=== PATIENT | female | born 1985 | race Caucasian/White ===

== ENCOUNTER → 2018-10-19 11:27 | Outpatient (CLI) | payer OTHER, SELFPAY ==
[2018-10-19 13:45] LABS: Add Manual Diff / Slide Review NO; Basophils Absolute Auto 0 /uL (0-100); Basophils Percent Auto 0.2 % (0-2); Eosinophils Absolute Auto 100 /uL (0-450); Eosinophils Percent Auto 1.2 % (2-4); Hematocrit 36.2 % (36-46); Hemoglobin 12.3 g/dL (12.0-16.0); Lymphocytes Absolute Auto 2000 /uL (1100-4500); Lymphocytes Percent Auto 24.9 % (25-40); Mean Corpuscular HGB Conc 33.9 % (30-36); Mean Corpuscular Hemoglobin 28.4 PG (26-34); Mean Corpuscular Volume 83.7 fL (80-100); Monocytes Absolute Auto 700 /uL (0-900); Monocytes Percent Auto 8.3 % (3-14); Neutrophils Absolute Auto 5400 /uL (1500-7000); Neutrophils Percent Auto 65.4 % (50-75); Platelet Count 248 X10^3/uL (150-400); Red Blood Cell Count 4.32 X10^6/uL (4.0-5.2); Red Cell Distribution Width 14.8 % (11.6-14.8); White Blood Cell Count 8.2 X10^3/uL (4.5-11.0)
[2018-10-19 14:15] LABS: Appearance Urine UA CLEAR; Bilirubin Urine UA NEGATIVE (NEGATIVE); Color Urine UA YELLOW; Glucose Urine UA NEGATIVE (Negative); Ketones Urine UA NEGATIVE (NEGATIVE); Leukocyte Esterase Urine UA NEGATIVE (NEGATIVE); Nitrite Urine UA NEGATIVE (Negative); Occult Blood Urine UA TRACE-INTACT (Negative); Protein Urine UA NEGATIVE (Negative); Specific Gravity Urine UA <=1.005 (1.000-1.035); Urobilinogen Urine UA 0.2 E.U./dL (0.2)
[2018-10-19 14:27] LABS: pH Urine UA 6.5 (4.5-8.0)
[2018-10-21 16:56] LABS: Hepatitis B Surface Antigen NEGATIVE s/c (NEGATIVE)
[2018-10-21 17:13] LABS: HIV 1 & 2 Ab/Ag 4th Gen Combo NEGATIVE (NEGATIVE); Hep C Virus Ab w/Reflex Quant NEGATIVE s/c (NEGATIVE)
[2018-10-22 15:56] LABS: RPR Screen NONREACTIVE
== END ==
DX: Z34.90 Encounter for supervision of normal pregnancy, unspecified, unspecified trimester (principal)
CPT/HCPCS: 36415; 80055; 81003; 86787; 86803; 86850; 86900; 86901; 87077; 87086; 87389

== ENCOUNTER → 2018-10-29 16:35 | Outpatient (CLI) | payer OTHER, SELFPAY | DX: Z34.81 Encounter for supervision of other normal pregnancy, first trimester (principal); Z3A.08 8 weeks gestation of pregnancy | CPT/HCPCS: 87491; 87591 ==

== ENCOUNTER → 2018-11-22 09:35 | Outpatient (CLI) | payer OTHER, SELFPAY ==
[2018-11-22 10:25] LABS: Hemoglobin A1C% w Est Avg Glu 5.3 % (4.0-6.0)
[2018-11-22 10:47] LABS: Glucose 93 mg/dL (70-100)
[2018-11-25 08:50] LABS: Sequential Screen 1st Trimeste FINAL RESULT PENDING
== END ==
DX: Z36.0 Encounter for antenatal screening for chromosomal anomalies (principal); Z34.81 Encounter for supervision of other normal pregnancy, first trimester; Z3A.12 12 weeks gestation of pregnancy
CPT/HCPCS: 36415; 82947; 83036; 84163; 84702

== ENCOUNTER 2018-12-24 14:16 | Day surgery (SDC) | payer OTHER, SELFPAY ==
[2018-12-23 14:47] VITALS: BMI 41.3
[2018-12-24] VITALS (9 sets, daily range): BP systolic 108–147; BP diastolic 61–90; PULSE 80–98; RESP 12–20; TEMP 36.6–37.3; O2SAT 99–100; BMI 41.3
--- NOTE | 2018-12-24 | PATH_ITS ---
[facility] Accession Number: [id number] . 01 Material submitted: . product of conception - PRODUCTS OF CONCEPTION . 01 Clinical history: . SUCTION D/C CONCERNED ABOUT TORCH AND CELL FREE DNA, CHROMOSOMAL ANALYSIS IN FORMALIN . 02 Diagnosis: Products of Conception: Fragmented fetus (foot length 7 mm, correlates to approximately 11 weeks gestational age); clinical reference to twin gestation is noted. Inflamed decidua and abundant necrotic tissue fragments present. Cytogenetics analysis pending; results will be reported as an addendum. Specimen submitted to [facility] (Dr. Alin Soriano) for review of clinical concerns of TORCH syndrome; their results will be reported as an addendum. MRV 12/26/2018 1350 Local . 02 Electronically signed: . Kristel Lazcano MD, Pathologist NPI- [id number] . 01 Gross description: . Received in formalin, labeled products of conception (formalin), are multiple fragments of de souza and pink hemorrhagic tissue (238 grams, 14.0 x 12.0 x 4.0 cm in aggregate) and a fragmented developing fetus (12 grams, 7.0 x 4.2 x 1.8 cm in aggregate) with a foot length of 0.7 cm. No obvious pathological abnormalities are grossly identified. tissue account manager sales representative submitted in cassettes A1 and A2, and account manager sales representative tissue from remaining tissue fragments are submitted in cassettes A3 and A4. Note: Per the requisition, this is a split sample with tissue sent to cytogenetics for analysis. ([id number]) /MRV 12/25/2018 1356 Local . 02 Pathologist provided ICD-10: O02.1 . 02 CPT . 269527 Performed at: [address], [place], [place] [id number] MD Jacinto Valdivia MD Phone: [phone] Performed at: [address] [facility] [place] [address] [address] [place] [id number] MD Gisela Puente MD Phone: [phone]
[2018-12-24] MEDS: LACTATED RINGERS 1,000 ML 42 ML IV (15:00)
--- NOTE | 2018-12-24 15:25 | PM.PREOP ---
Pre-operative Note Interval Note History & Physical reviewed/Exam performed by Physician: Yes Changes to H&P: No ASA Class (for procedural sedation): II
[2018-12-24] MEDS: CEFOTETAN 2 GM/50 ML PIGGYBACK IV (15:28)
--- NOTE | 2018-12-24 15:47 | SUR.OPER ---
Lithotomy on padded OR bed, head on pillow, arms secured on padded arm boards at <90 degrees abduction. Legs secured in padded yellow fins stirrups.
--- NOTE | 2018-12-24 16:08 | PM.GYNOP.1 ---
Operative Date/Time/Diagnoses Date of procedure: 12/24/18 Time of procedure: 16:09 Pre-op diagnosis: Missed AB Twins Post-op diagnosis: same Procedure & Clinicians Procedure: Procedures Operation Date: 12/24/18 15:30 Actual Procedures Side Surgeon p Suction Dilation and Curettage Juvenal Davidson MD Indications: Missed Surgeon: Juvenal Davidson Anesthesia Type: General Operative Notes Findings: Large amount of products conception compatible with a twin gestation of 12 weeks Specimen(s): endometrial curettings Estimated blood loss (mL): 400 Blood products transfused: none Procedure in detail: Patient was placed supine upon the operating table and anesthetized. She is placed in the dorsal lithotomy position examined under anesthesia. She has felt of 12 week size uterus. Patient was then draped. Usual fashion. A posterior weighted retractor was set in place in the anterior lip of cervix grasped with a toothed tenaculum. The uterine cavity sounded to 14 cm. The uterine cervix was dilated to Hegar 12. A 12. Suction curette was then used and large amounts of products conception were obtained. Ring forceps are used additional tissue was obtained. Large curette was used especially anteriorly and the placenta was able to be dislodged and pulled through the uterus and cervix. Resection curettage revealed no remaining tissue. Using the ring forceps revealed no remaining tissue. Gentle sharp curettage revealed a smooth lining with no evidence of defects or retained products of conception. Complications: none Post-operative Condition: stable Disposition: PACU Plan for aftercare: Home
[2018-12-24] MEDS: OXYTOCIN IV (16:25)
[2018-12-24] MEDS: SODIUM CHLORIDE 0.9% IV (16:25)
[2018-12-24] MEDS: OXYCODONE/ACETAMINOPHEN 5/325 TABLET 1 TAB PO (16:44)
== END 2018-12-24 17:29 | disposition home or self-care (01) ==
PROC: (CPT 58120; principal; 2018-12-24 15:30)
DX: O02.1 Missed abortion (principal); Z3A.12 12 weeks gestation of pregnancy
CPT/HCPCS: 59820; 86850; 86900; 86901; J1100; J2210; J2250; J2405; J2590; J2704; J3010

== ENCOUNTER → 2019-07-02 10:52 | Outpatient (CLI) | payer OTHER, SELFPAY ==
[2019-07-02 13:08] LABS: Progesterone, Total 8.77 ng/mL
== END ==
DX: N97.0 Female infertility associated with anovulation (principal)
CPT/HCPCS: 36415; 84144

== ENCOUNTER → 2019-07-30 12:04 | Outpatient (CLI) | payer OTHER, SELFPAY ==
[2019-07-30 14:00] LABS: Thyroid Stimulating Hormone 2.02 uIU/mL (0.47-4.68)
[2019-07-30 17:06] LABS: Progesterone, Total 9.88 ng/mL
== END ==
DX: R53.83 Other fatigue (principal); N97.0 Female infertility associated with anovulation
CPT/HCPCS: 36415; 84144; 84443

== ENCOUNTER → 2020-07-29 10:03 | Outpatient (CLI) | payer OTHER, SELFPAY ==
[2020-07-29 11:52] LABS: HCG Quantitative /Beta subunit 101.2 mIU/mL
== END ==
PROVIDERS: Referring Provider Obstetrics & Gynecology; Visit Provider Obstetrics & Gynecology
DX: O20.9 Hemorrhage in early pregnancy, unspecified (principal)
CPT/HCPCS: 36415; 84702

== ENCOUNTER → 2020-07-30 09:12 | Outpatient (CLI) | payer OTHER, SELFPAY ==
[2020-07-30 10:36] LABS: HCG Quantitative /Beta subunit 63.6 mIU/mL
== END ==
PROVIDERS: Referring Provider Obstetrics & Gynecology; Visit Provider Obstetrics & Gynecology
DX: O20.9 Hemorrhage in early pregnancy, unspecified (principal)
CPT/HCPCS: 36415; 84702

== ENCOUNTER → 2020-09-20 14:58 | Outpatient (CLI) | payer OTHER, SELFPAY ==
--- NOTE | 2020-09-20 15:00 | DI.CT.S_ITS ---
PROCEDURE: CT SINUS SCREEN WO CON INDICATIONS: CHRONIC PANSINUSITIS TECHNIQUE: Noncontrast 3.0 mm axial images acquired from the frontal sinuses to the mid-sella, with coronal and sagittal reformats. For radiation dose reduction, the following was used: automated exposure control, adjustment of mA and/or kV according to patient size. COMPARISON: None. FINDINGS: Image quality: Excellent. Maxillary Sinuses: Maxillary sinus is clear other than a small left maxillary sinus mucous retention cyst inferiorly. Maxillary sinus outflow tracts are widely patent. No bony remodeling or destruction. Ethmoid Air Cells: No bony remodeling or destruction. Sinuses are clear. Sphenoid Sinuses: No bony remodeling or destruction. Sinuses are clear. Frontal Sinuses: No bony remodeling or destruction. Sinuses are clear. Ostiomeatal Complexes: Ostiomeatal complexes are patent. No Joanna cells. Miscellaneous: Visualized intra-orbital contents are normal. No rhianna bullosa or paradoxical turbinate curvature. No nasal septal deviation. IMPRESSION: No findings of acute or chronic sinusitis. Dictated by: Jose Alberto Crump M.D. on 09/20/2020 at 15:10 Approved by: Jose Alberto Crump M.D. on 09/20/2020 at 15:12
== END ==
PROVIDERS: Referring Provider Otolaryngology; Visit Provider Otolaryngology
DX: J32.4 Chronic pansinusitis (principal)
CPT/HCPCS: 70486

== ENCOUNTER → 2020-10-26 13:59 | Outpatient (CLI) | payer OTHER, SELFPAY ==
--- NOTE | 2020-10-26 14:00 | DI.MG.S_ITS ---
BILATERAL DIGITAL DIAGNOSTIC MAMMOGRAM 3D/2D: 10/26/2020 CLINICAL: Baseline. Breast lump. No prior exams were available for comparison. There are scattered fibroglandular elements in both breasts. No significant masses, calcifications, or other findings are seen in either breast. IMPRESSION: INCOMPLETE: NEEDS ADDITIONAL IMAGING EVALUATION There is no abnormality seen in the right breast to correspond with the palpable abnormality in the sub-areolar depth. Targeted ultrasound is recommended for further evaluation, which will be scheduled immediately following this exam. This exam was interpreted at Station ID: [id number]. NOTE: For mammograms, a report in lay terms will be sent to the patient. Approximately 15% of breast malignancies will not be visualized mammographically. In the management of a palpable breast mass, a negative mammogram must not discourage biopsy of a clinically suspicious lesion. Electronically Signed By: Aroldo ash/mahnaz:10/26/2020 15:26:31 ACR BI-RADS Category 0: Incomplete [id number]
--- NOTE | 2020-10-26 14:00 | DI.US.S_ITS ---
PROCEDURE: US PELVIC COMPLETE INDICATIONS: ABNORMAL UTERINE BLEEDING TECHNIQUE: Real-time scanning was performed of the pelvic organs, with image documentation. Additional endovaginal scanning was necessary due to incomplete visualization of the adnexal and endometrial structures by transabdominal scanning. COMPARISON: [facility], US, US PELVIC COMPLETE, 08/12/2019, 10:54. FINDINGS: Uterus: The uterus is retroflexed measuring 8.4 x 4.4 x 3.5 cm. Endometrial thickness is 13.1 cm. Ovaries: Both ovaries have a normal size and appearance. No solid or cystic masses. Other: No pathologic free abdominal or pelvic fluid. IMPRESSION: No acute ultrasound abnormality of the pelvis. Dictated by: Kendall Winkler M.D. on 10/26/2020 at 16:18 Approved by: Kendall Winkler M.D. on 10/26/2020 at 16:21
--- NOTE | 2020-10-26 14:00 | DI.US.S_ITS ---
LIMITED ULTRASOUND OF RIGHT BREAST AND AXILLA: 10/26/2020 CLINICAL: Breast lump. Comparison is made to exam dated: 10/26/2020 [facility]. Color flow ultrasound of the right breast retroareolar and axilla regions was performed. Bagley scale images of the real-time examination were reviewed. No significant abnormalities were seen sonographically in the right axilla. There is a 0.8 x 0.4 x 0.2 cm oval hypoechoic lesion within the skin of the right breast 9 o'clock position adjacent to the nipple corresponding to the palpable abnormality. There is mildly increased adjacent vascularity. No definite tract to the skin surface is identified. IMPRESSION: BENIGN The palpable 0.8 cm hypoechoic lesion within the skin of the right breast is most likely a nonspecific skin lesion such a sebaceous cyst versus a mildly dilated superficial duct given the proximity to the nipple, and is considered benign. Mildly increased adjacent vascularity may indicate superimposed inflammation. Recommend clinical follow up. There is no sonographic evidence of malignancy. Annual screening mammogram is recommended beginning at age 40. This exam was interpreted at Station ID: [id number]. Electronically Signed By: Aroldo Madrigal M.D. ar/:10/26/2020 15:57:24 letter sent: Clinical Evaluation Ultrasound BI-RADS: 2 Benign
== END ==
PROVIDERS: Referring Provider Obstetrics & Gynecology; Visit Provider Obstetrics & Gynecology
DX: N63.10 Unspecified lump in the right breast, unspecified quadrant (principal); N39.3 Stress incontinence (female) (male); N93.9 Abnormal uterine and vaginal bleeding, unspecified
CPT/HCPCS: 76642; 76830; 76856; 77066; G0279

== ENCOUNTER → 2020-11-03 13:36 | Outpatient (CLI) | payer OTHER, SELFPAY ==
[2020-11-03 16:05] LABS: COVID19 -Nasal RAPID Negative (Negative)
== END ==
PROVIDERS: Visit Provider Obstetrics & Gynecology
DX: Z20.822 Contact with and (suspected) exposure to COVID-19 (principal); Z01.812 Encounter for preprocedural laboratory examination
CPT/HCPCS: 87635

== ENCOUNTER 2020-11-04 10:25 | Day surgery (SDC) | payer OTHER, SELFPAY ==
[2020-11-02 07:10] VITALS: BMI 34.3
[2020-11-04] VITALS (7 sets, daily range): BP systolic 102–123; BP diastolic 67–82; PULSE 62–82; RESP 8–13; TEMP 36.4–36.9; O2SAT 97–100; BMI 34.3
[2020-11-04] MEDS: LACTATED RINGERS 1,000 ML 100 ML IV (10:51)
--- NOTE | 2020-11-04 11:15 | PM.HP.1 ---
History of Present Illness History of Present Illness Date Patient Seen: 11/04/20 Time Patient Seen: 11:15 Chief complaint: D&C HYSTEROSCOPY W/POLYPECTOMY Narrative: Patient is a 35-year-old 3 para 3 who presents for a D&C hysteroscopy with polypectomy. This is being done due to abnormal uterine bleeding and a thickened endometrial lining. Patient History Medical History (Updated 11/02/20 @ 07:35 by Juli Thao RN) Abnormal Pap smear of cervix (03/2013) Infertility Missed (12/2018) Surgical History (Updated 11/02/20 @ 07:35 by Juli Thao RN) History of surgery (12/24/18) Status post colposcopy (04/16/14) Family & Social History Family History Grandfather Heart disease Social History: household members significant other,children Tobacco & Substance use: Smoking Status Never smoker alcohol intake frequency a few times a week Substance Use Type does not use Meds Home Medications and Allergies Allergies Allergy/AdvReac Type Severity Reaction Status Date / Time No Known Drug Allergies Allergy Verified 11/04/20 10:36 Exam Vital Signs (past 8 hours): - 11/04/20 10:38 Temperature 97.5 F L Pulse Rate 82 Respiratory Rate 12 Blood Pressure 123/82 Pulse Oximetry 100 Oxygen Delivery Method Room Air Narrative Exam Narrative: HEENT: No thyromegaly, no anterior cervical or supraclavicular lymphadenopathy. Lungs:Clear to auscultation bilaterally, no wheezes. Cardiovascular: Regular rate and rhythm, no murmurs, rubs, or gallops. Abdomen: No scars. No hepatosplenomegaly. No masses palpable. External genitalia: Normal Vagina: Normal Cervix: Normal Bimanual exam: 7 Week size anterior uterus. Mobile. Assessment & Plan Assessment & Plan narrative: Assessment: 35-year-old 3 para 3 with abnormal uterine bleeding and endometrial hyperplasia Plan: D&C hysteroscopy with possible polypectomy The risks, benefits, and alternatives to the procedure were explained to the patient. The risks including bleeding, infection, and uterine perforation. She understands these risks and agrees to proceed. A full par Q was held and consent form was signed. COVID-19 COVID-19 status: Negative Result date/Date tested (Pos, Neg/Pending): 11/03/20 Time Spent With Patient Time with patient: less than 30 minutes Critical Care time: I spent a total of [] minutes of critical care time on this patient's care today; this time is exclusive of procedural time.
--- NOTE | 2020-11-04 11:17 | PM.PREOP ---
Pre-operative Note COVID-19 COVID-19 status: Negative Result date/Date tested (Pos, Neg/Pending): 11/03/20 Interval Note History & Physical reviewed/Exam performed by Physician: Yes Changes to H&P: No H&P completed within 30 days and has changed as indicated here:: 11/04/20
--- NOTE | 2020-11-04 11:48 | PM.GYNOP.1 ---
Operative Date/Time/Diagnoses Date of procedure: 11/04/20 Time of procedure: 11:48 Pre-op diagnosis: Abnormal uterine bleeding Endometrial hyperplasia Post-op diagnosis: same Procedure & Clinicians Procedure: Procedures Operation Date: 11/04/20 11:45 Actual Procedure Side Surgeon p Hysteroscopy D&C, polypectomy Sylvie Raygoza MD Indications: Abnormal uterine bleeding Endometrial hyperplasia Surgeon: Sylvie Raygoza Anesthesia Type: General (LMA) Operative Notes Findings: 8 week size anteverted uterus Both fallopian tube ostia observed No polyps or fibroids Very thickened endometrial lining throughout Closure Type: not applicable Specimen(s): endometrial curettings Estimated blood loss (mL): 15 Blood products transfused: none Procedure in detail: After informed consent was obtained, the patient was taken to the operating room where she was placed in the dorsal supine position. After adequate LMA general anesthesia was achieved, she was placed in the dorsal lithotomy position, and prepped and draped in the usual sterile fashion. A time-out was performed. A bivalve speculum was placed into the vagina and the anterior lip of the cervix grasped with a single-tooth tenaculum. The cervical os was sequentially dilated until the hysteroscope could pass easily into the endometrial cavity. Initial inspection with the hysteroscope revealed both fallopian tube ostia. No fibroids or polyps. Thickened endometrium throughout. The hysteroscope was removed. Sharp curettage was performed yielding a large amount of endometrial curettings. The instruments were removed from the uterus. The single-tooth tenaculum was removed from the anterior lip of the cervix. The bivalve speculum was removed from the vagina. Sponge, lap, and instrument counts were correct x2. Patient tolerated the procedure well, and was taken to PACU in stable condition. Complications: none Post-operative Condition: stable Disposition: PACU Plan for aftercare: Home after recovery
--- NOTE | 2020-11-04 11:57 | SUR.OPER ---
Lithotomy on padded OR bed, head on pillow, arms secured on padded arm boards at <90 degrees abduction. Legs secured in padded yellow fins stirrups.
--- NOTE | 2020-11-04 12:25 | SUR.PHASEII ---
SBAR report at bedside to Chrissy STEVENSON. Call light in reach.
== END 2020-11-04 13:00 | disposition home or self-care (01) ==
PROVIDERS: PCP Family Medicine; Referring Provider Obstetrics & Gynecology; Visit Provider Obstetrics & Gynecology
PROC: 0UDB8ZZ Extraction of Endometrium, Via Natural or Artificial Opening Endoscopic (ICD-10-PCS; CPT 58558; principal; 2020-11-04 11:45)
DX: N93.9 Abnormal uterine and vaginal bleeding, unspecified (principal); N85.00 Endometrial hyperplasia, unspecified
CPT/HCPCS: 58558; J1100; J1885; J2250; J2405; J2704; J3010

== ENCOUNTER → 2021-05-02 15:23 | Outpatient (CLI) | payer OTHER, SELFPAY ==
[2021-05-02 16:37] LABS: COVID19 -Nasal RAPID Negative (Negative)
== END ==
PROVIDERS: PCP Family Medicine; Visit Provider Family Medicine Sleep Medicine
DX: Z20.822 Contact with and (suspected) exposure to COVID-19 (principal)
CPT/HCPCS: 87635; C9803

== ENCOUNTER 2021-05-04 12:22 | Day surgery (SDC) | payer OTHER, SELFPAY ==
[2021-05-04 12:39] VITALS: BP 123/82; PULSE 77; RESP 16; TEMP 35.9; O2SAT 100; BMI 33.0
[2021-05-04] MEDS: SODIUM CHLORIDE 0.9% 1,000 ML 84 ML IV (12:55)
--- NOTE | 2021-05-04 13:30 | SUR.OPER ---
PHYSICIAN STATED HE COMPLETED H&P PRIOR TO ADMIT TO ENDO SUITE..UNABLE TO LOCATE IN SYSTEM EXTERNALABDOMINAL PRESSURE AND POSITIONING ON BACK
--- NOTE | 2021-05-04 13:39 | PM.HP.1 ---
History of Present Illness History of Present Illness Date Patient Seen: 05/04/21 Chief complaint: SDC Narrative: Right lower quadrant pain with sister who has history of Crohn's disease Patient History Medical History (Updated 03/06/21 @ 08:52 by Sylvie Raygoza MD) Abnormal Pap smear of cervix (03/2013) Infertility Missed (12/2018) Surgical History (Updated 11/02/20 @ 07:35 by Juli Thao RN) History of surgery (12/24/18) Status post colposcopy (04/16/14) Family & Social History Family History Grandfather Heart disease Social History: household members significant other,children Tobacco & Substance use: Smoking Status Never smoker alcohol intake frequency a few times a week Substance Use Type does not use Meds Home Medications and Allergies Home Medications Medication Instructions Recorded Confirmed Type levothyroxine 50 mcg tablet 50 mcg PO DAILY 05/04/21 05/04/21 History Allergies Allergy/AdvReac Type Severity Reaction Status Date / Time No Known Drug Allergies Allergy Verified 05/04/21 12:36 Exam Vital Signs (past 8 hours): - 05/04/21 12:39 Temperature 96.7 F L Pulse Rate 77 Respiratory Rate 16 Blood Pressure 123/82 Pulse Oximetry 100 Oxygen Delivery Method Room Air Narrative Exam Narrative: Oropharynx free of lesions Chest clear to auscultation percussion Cardiac exam reveals no S3 or murmur Assessment & Plan Assessment & Plan narrative: Right lower quadrant pain with family history of Crohn's disease rule out Crohn's disease. Risks, benefits, alternatives have been explained. Time Spent With Patient Critical Care time: I spent a total of [] minutes of critical care time on this patient's care today; this time is exclusive of procedural time.
--- NOTE | 2021-05-04 13:41 | PM.OP.COLON ---
Operative Date/Time/Diagnoses Date of procedure: 05/04/21 Pre-op diagnosis: See indication and findings Procedure & Clinicians Study performed: Colonoscopy Indications: Right lower quadrant pain Surgeon: Aidee Gan Procedure Notes Procedure in detail: After informed consent was obtained the patient was placed in left lateral decubitus position. The video colonoscope was introduced the rectum slowly advanced cecum. Significant looping was encountered. On identify the cecum and IC valve the terminal ileum was intubated. On slow withdrawal mucosa was carefully examined. Scope was removed. Patient tolerated procedure well. Blood loss none Complications none Sedation mac Findings 1. Normal terminal ileum 2. Normal colonoscopy to cecum Patient will follow up with Dr. Phillips for further discussion.
[2021-05-04 13:43] VITALS: BP 94/56; PULSE 74; RESP 17; TEMP 36.4; O2SAT 100
[2021-05-04 13:48] VITALS: BP 114/76; PULSE 72; RESP 14; O2SAT 100
[2021-05-04 13:53] VITALS: BP 117/67; PULSE 67; RESP 15; O2SAT 100
[2021-05-04 13:58] VITALS: BP 115/73; PULSE 61; RESP 13; O2SAT 99
[2021-05-04 14:03] VITALS: BP 122/79; PULSE 80; RESP 12; O2SAT 100
== END 2021-05-04 14:15 | disposition home or self-care (01) ==
PROVIDERS: PCP Family Medicine; Referring Provider Internal Medicine Gastroenterology; Visit Provider Internal Medicine Gastroenterology
PROC: 0DJD8ZZ Inspection of Lower Intestinal Tract, Via Natural or Artificial Opening Endoscopic (ICD-10-PCS; CPT 45378; principal; 2021-05-04 13:30)
DX: R10.31 Right lower quadrant pain (principal)
CPT/HCPCS: 45378; J2704

== ENCOUNTER → 2021-10-07 13:52 | Outpatient (CLI) | payer OTHER, SELFPAY ==
--- NOTE | 2021-10-07 13:53 | DI.US.S_ITS ---
PROCEDURE: US PELVIC COMPLETE INDICATIONS: PELVIC PAIN TECHNIQUE: Real-time scanning was performed of the pelvic organs, with image documentation. Additional endovaginal scanning was necessary due to incomplete visualization of the adnexal and endometrial structures by transabdominal scanning. COMPARISON: [facility], , US PELVIC COMPLETE, 10/26/2020, 15:22. FINDINGS: Uterus: Uterus is anteverted and normal in size at 8.9 x 5.6 x 4.1 cm. The myometrium is mildly heterogeneous. The endometrium measures 15.4 mm combined thickness. Ovaries: The right ovary measures 2.9 x 2.2 x 2.6 cm, with a calculated ovarian volume of 8.6 cc. The left ovary is not visualized. No adnexal masses seen. Other: No pathologic free abdominal or pelvic fluid. IMPRESSION: No source for pelvic pain identified. We strive to produce accurate, complete, and clear reports of imaging services. To assist us in improving patient care, this report was composed using standard report templates and voice recognition software. Therefore, it may contain abnormal punctuation, insertions and/or omissions. Occasional wrong-word or sound-alike substitutions may occur. Though we review the report and make efforts to correct it, we do recommend that the report be read carefully in proper context to recognize any text inaccuracies. Dictated by: Kian RICHARDS Interpreted: Benjamin Hatch MD on 10/07/2021 at 16:02 Transcribed by: ELIZABETH on 10/07/2021 at 16:03 Approved by: Benjamin Hatch M.D. on 10/07/2021 at 16:20
== END ==
PROVIDERS: PCP Family Medicine; Referring Provider Obstetrics & Gynecology; Visit Provider Obstetrics & Gynecology
DX: R10.2 Pelvic and perineal pain (principal)
CPT/HCPCS: 76830; 76856

== ENCOUNTER → 2022-02-14 15:58 | Outpatient (CLI) | payer OTHER, SELFPAY ==
[2022-02-14 17:21] LABS: HCG Quantitative /Beta subunit 1963.6 mIU/mL
== END ==
PROVIDERS: PCP Family Medicine; Referring Provider Obstetrics & Gynecology; Visit Provider Obstetrics & Gynecology
DX: N96 Recurrent pregnancy loss (principal)
CPT/HCPCS: 36415; 84144; 84702

== ENCOUNTER → 2022-02-16 15:58 | Outpatient (CLI) | payer OTHER, SELFPAY ==
[2022-02-16 18:41] LABS: HCG Quantitative /Beta subunit 4770.7 mIU/mL
== END ==
PROVIDERS: PCP Family Medicine; Referring Provider Obstetrics & Gynecology; Visit Provider Obstetrics & Gynecology
DX: O09.299 Supervision of pregnancy with other poor reproductive or obstetric history, unspecified trimester (principal); Z3A.00 Weeks of gestation of pregnancy not specified
CPT/HCPCS: 36415; 84702

== ENCOUNTER 2022-02-24 10:27 | Emergency (ER) | payer OTHER, SELFPAY ==
[2022-02-24] VITALS (8 sets, daily range): BP systolic 127–150; BP diastolic 67–85; PULSE 65–84; RESP 16–18; TEMP 36.9; O2SAT 94–100; BMI 35.5
--- NOTE | 2022-02-24 10:37 | DI.US.S_ITS ---
PROCEDURE: US OB <= 14 WEEKS FETUS INDICATIONS: BLEEDING. OUTSIDE/PRIOR DATING DATA: Last menstrual period (LMP): 01/13/2022. LMP-based estimated date of delivery (DANA): 10/20/2022. First dating scan (date and location): 02/24/2022. Estimated date of delivery (DANA) from first dating scan: 10/19/2022. The calculations are made using the ultrasound DANA of 10/19/2022. TECHNIQUE: Real-time scanning was performed of the fetus and maternal pelvic organs, with image documentation. Endovaginal scanning was also performed to better visualize the fetus and maternal ovaries. COMPARISON: [facility], US, US OB <= 14 WEEKS FETUS, 11/22/2018, 9:06. FINDINGS: Embryo: [place]-rump length measuring 0.3 cm. Gestational age 6 weeks 1 day. Heart rate: 121 bpm A yolk sac is seen. No perigestational hemorrhage. Maternal organs: Right ovary is within normal limits. Left ovary is not visualized. IMPRESSION: 1. [place] living intrauterine at 6 weeks 1 day based on today's crown rump length. 2. No perigestational hemorrhage. We strive to produce accurate, complete, and clear reports of imaging services. To assist us in improving patient care, this report was composed using standard report templates and voice recognition software. Therefore, it may contain abnormal punctuation, insertions and/or omissions. Occasional wrong-word or sound-alike substitutions may occur. Though we review the report and make efforts to correct it, we do recommend that the report be read carefully in proper context to recognize any text inaccuracies. Dictated by: Rodríguez Su M.D. on 02/24/2022 at 11:57 Approved by: Rodríguez Su M.D. on 02/24/2022 at 12:01
--- NOTE | 2022-02-24 10:56 | ED.PREGNANCY ---
HPI - General Chief complaint: Vaginal Bleeding Stated complaint: thinks she is having miscarriage Time Seen by Provider: 02/24/22 10:56 Source: patient and family Limitations: no limitations History of Present Illness HPI Narrative: This is a 36-year-old female A3 history of migraines, hypothyroidism, patient presents today concerned she may be having a miscarriage. Patient states she is about 6 weeks along in her by dates. She is not had ultrasound formally. She states she developed headache about 3 days ago she is felt a little dizzy had some mild nausea. She states feels somewhat similar to migraines she is had in the past but with her 3 prior miscarriages she developed bad headache several days before from the hormone drop. Patient states today she noticed some bright red blood when she wiped vaginal area after having a bowel movement. Patient states it was from the vagina not further rectum. She states she was little constipated. She denies chest pain or shortness of breath. No syncope. She denies any vomiting actively today. Patient states she is had occasional during the . She denies any other black or bloody stools. Denies any dysuria urgency or frequency. No vaginal bleeding otherwise or fluid leak. She states the blood was sort of a dark burgundy wine color. She does not describe any clots. She states some pressure in her lower pelvis that has been present since she realized she was . She has not had any new increasing abdominal pain. Patient states she was on metformin and levothyroxine before but has stopped those around November, she is on progesterone daily. She denies any drug allergies. She is had D and C's in the past but denies other surgeries. She denies tobacco, occasional alcohol, nothing recently, no illicit. Her care is being provided by Dr. Raygoza. Related Data Home Medications Medication Instructions Recorded Confirmed metformin 500 mg 24 hr 500 mg PO TID 10/26/21 10/26/21 tablet,extended release Previous Rx's Medication Instructions Recorded levothyroxine 25 mcg capsule 25 mcg PO DAILY #90 caps 01/03/22 progesterone micronized 200 mg 200 mg PO BEDTIME #30 caps 02/15/22 capsule Allergies Allergy/AdvReac Type Severity Reaction Status Date / Time No Known Drug Allergies Allergy Verified 10/26/21 15:33 Review of Systems Review of Systems ROS Unobtainable: All systems reviewed & are unremarkable except as noted in HPI and below Exam Narrative Exam Narrative: GEN: well nourished, well appearing female, alert and oriented x 3, patient appears to be in mild distress. Patient does anxious and a little tearful. HEENT: Atraumatic, pupils are equal round reactive to light, extraocular movements are intact, nares are clear HEART: Regular rate and rhythm without murmur, clicks, rubs. LUNGS:Lungs clear to auscultation, no wheezes, rales, crackles, chest moves symmetrically ABD:bowel sounds normal, soft, nondistended, non-tender, no guarding, rebound, rigidity, no masses noted, no hepatosplenomegaly :No CVA tenderness MSCL: Non-tender, no muscle atrophy, muscles strength 5/5 upper and lower extremities, full range of motion, normal gait NEURO:CN 2-12 intact, sensation normal Initial Vital Signs Initial Vital Signs: Vital Signs Temperature 98.4 F 02/24/22 10:35 Pulse Rate 84 02/24/22 10:35 Respiratory Rate 16 02/24/22 10:35 Blood Pressure 147/82 H 02/24/22 10:35 Pulse Oximetry 100 02/24/22 10:35 Oxygen Delivery Method 02/24/22 10:35 Course Orders Ordered: Discontinued Medications Acetaminophen (Acetaminophen 325 Mg Tablet) 975 mg PO NOW ONE Stop: 02/24/22 11:09 Last Admin: 02/24/22 11:28 Dose: 975 mg Documented By: AT Sodium Chloride (Normal Saline 0.9%) 1,000 mls @ 1,000 mls/hr IV BOLUS ONE Stop: 02/24/22 12:07 Last Infusion: 02/24/22 12:13 Dose: 0 mls/hr Documented By: Infusion: 02/24/22 12:12 Dose: 0 mls/hr Documented By: Admin: 02/24/22 11:29 Dose: 1,000 mls/hr Documented By: AT Metoclopramide HCl (Metoclopramide 10 Mg/2 Ml Inj) 10 mg IV NOW ONE Stop: 02/24/22 11:09 Last Admin: 02/24/22 11:28 Dose: 10 mg Documented By: AT Vital Signs Vital signs: Vital Signs - 8 hr 02/24/22 10:35 02/24/22 10:35 02/24/22 10:44 Temperature 98.4 F Pulse Rate 84 Respiratory Rate 16 Blood Pressure 147/82 H 141/74 H Pulse Oximetry 100 100 Oxygen Delivery Method Room Air 02/24/22 10:44 02/24/22 11:00 02/24/22 11:01 Temperature Pulse Rate 80 74 Respiratory Rate Blood Pressure 150/85 H Pulse Oximetry 100 100 Oxygen Delivery Method Room Air 02/24/22 11:01 02/24/22 11:33 Temperature Pulse Rate 76 71 Respiratory Rate Blood Pressure Pulse Oximetry 100 94 Oxygen Delivery Method MDM - OB/Uterine Contractions Lab Data Result diagrams: 02/24/22 10:41 02/24/22 10:41 Labs: Lab Results 02/24/22 02/24/22 02/24/22 Range/Units 10:41 10:41 10:41 WBC 6.9 (4.5-11.0) X10^3/uL RBC 4.52 (4.0-5.2) X10^6/uL Hgb 12.4 (12.0-16.0) g/dL Hct 37.8 (36-46) % MCV 83.6 (80-100) fL MCH 27.5 (26-34) PG MCHC 32.9 (30-36) % RDW 14.3 (11.6-14.8) % Plt Count 276 (150-400) X10^3/uL Neut % (Auto) 52.1 (50-75) % Lymph % (Auto) 38.1 (25-40) % [place] % (Auto) 8.3 (3-14) % Eos % (Auto) 1.2 L (2-4) % Baso % (Auto) 0.3 (0-2) % Neut # (Auto) 3600 (6835-0386) /uL Lymph # (Auto) 2600 (7648-7265) /uL [place] # (Auto) 600 (0-900) /uL Eos # (Auto) 100 (0-450) /uL Baso # (Auto) 0 (0-100) /uL Sodium 139 (137-145) mmol/L Potassium 3.6 (3.4-5.1) mmol/L Chloride 101 (98-107) mmol/L Carbon Dioxide 25 (22-32) mmol/L BUN 10 (7-17) mg/dL Creatinine 0.73 (0.52-1.04) mg/dL Estimated GFR > 60 (>60) mL/min BUN/Creatinine Ratio 13.7 (6-22) Glucose 102 H (70-100) mg/dL Calcium 9.3 (8.4-10.2) mg/dL Total Bilirubin 0.4 (0.2-1.3) mg/dL AST 23 (14-36) IU/L ALT 19 (<35) IU/L Alkaline Phosphatase 60 (38-126) U/L Total Protein 8.0 (6.3-8.2) g/dL Albumin 4.5 (3.5-5.0) g/dL Globulin 3.5 (1.7-4.1) g/dL Albumin/Globulin Ratio 1.3 (1.0-2.8) TSH (0.47-4.68) uIU/mL HCG, Quant 07883 mIU/mL Blood Type A Positive 02/24/22 Range/Units 10:41 WBC (4.5-11.0) X10^3/uL RBC (4.0-5.2) X10^6/uL Hgb (12.0-16.0) g/dL Hct (36-46) % MCV (80-100) fL MCH (26-34) PG MCHC (30-36) % RDW (11.6-14.8) % Plt Count (150-400) X10^3/uL Neut % (Auto) (50-75) % Lymph % (Auto) (25-40) % [place] % (Auto) (3-14) % Eos % (Auto) (2-4) % Baso % (Auto) (0-2) % Neut # (Auto) (0043-3535) /uL Lymph # (Auto) (8950-3319) /uL [place] # (Auto) (0-900) /uL Eos # (Auto) (0-450) /uL Baso # (Auto) (0-100) /uL Sodium (137-145) mmol/L Potassium (3.4-5.1) mmol/L Chloride (98-107) mmol/L Carbon Dioxide (22-32) mmol/L BUN (7-17) mg/dL Creatinine (0.52-1.04) mg/dL Estimated GFR (>60) mL/min BUN/Creatinine Ratio (6-22) Glucose (70-100) mg/dL Calcium (8.4-10.2) mg/dL Total Bilirubin (0.2-1.3) mg/dL AST (14-36) IU/L ALT (<35) IU/L Alkaline Phosphatase (38-126) U/L Total Protein (6.3-8.2) g/dL Albumin (3.5-5.0) g/dL Globulin (1.7-4.1) g/dL Albumin/Globulin Ratio (1.0-2.8) TSH 4.23 (0.47-4.68) uIU/mL HCG, Quant mIU/mL Blood Type Point of Care Testing Test Results Positive Urine Dip Bedside Urine Glucose Negative Bedside Urine Bilirubin - Negative Bedside Urine Ketone - Negative Urine Specific [place] 1.010 Bedside Urine Occult Blood - Negative Bedside Urine pH 6.5 Bedside Urine Protein - Negative Bedside Urine Urobilinogen - Negative Bedside Urine Nitrite - Negative Bedside Urine Leukocytes - Negative Esterase Imaging Data US - OB: Radiologist's Impression: [place] [address] Ultrasound Report Signed Patient: Krystle Cruz MR#: [id number] : 1985 Acct:[id number] Age/Sex: 36 / F Date of Service: 02/24/22 Loc: Accession Number: [id number] ?? Procedure: US OB <= 14 weeks fetus Ordering Provider: Kelly Huber D.O. PROCEDURE:? US OB <= 14 WEEKS FETUS ? INDICATIONS:? BLEEDING. ? OUTSIDE/PRIOR DATING DATA:? Last menstrual period (LMP):? 01/13/2022.? LMP-based estimated date of delivery (DANA):? 10/20/2022.? First dating scan (date and location):? 02/24/2022.? Estimated date of delivery (DANA) from first dating scan:? 10/19/2022. The calculations are made using the ultrasound DANA of 10/19/2022. ? TECHNIQUE:? Real-time scanning was performed of the fetus and maternal pelvic organs, with image documentation.? Endovaginal scanning was also performed to better visualize the fetus and maternal ovaries.? ? COMPARISON:? [facility], US, US OB <= 14 WEEKS FETUS, 11/22/2018, 9:06. ? FINDINGS:? ? Embryo:? [place]-rump length measuring 0.3 cm. Gestational age 6 weeks 1 day. Heart rate:? 121 bpm ? A yolk sac is seen.? No perigestational hemorrhage. ? Maternal organs:? Right ovary is within normal limits.? Left ovary is not visualized. ? ? IMPRESSION:? 1. [place] living intrauterine at 6 weeks 1 day based on today's crown rump length. ? 2. No perigestational hemorrhage. ? We strive to produce accurate, complete, and clear reports of imaging services. To assist us in improving patient care, this report was composed using standard report templates and voice recognition software. Therefore, it may contain abnormal punctuation, insertions and/or omissions. Occasional wrong-word or sound-alike substitutions may occur. Though we review the report and make efforts to correct it, we do recommend that the report be read carefully in proper context to recognize any text inaccuracies. ? ? Dictated by: Rodríguez Su M.D. on 02/24/2022 at 11:57 ? ? Approved by: Rodríguez Su M.D. on 02/24/2022 at 12:01?? MDM Narrative Medical decision making narrative: 36-year-old female concern for miscarriage patient complains of headache similar to her prior meager migraines and when she is had prior miscarriages which she relates to the hormone. Patient does not have any acute neurologic changes appreciated clinically. Patient had 1 episode where she wiped and saw dark blood preliminary ultrasound shows a fetus with heart rate appropriate for dates with no active bleed appreciated. Discussed with patient will try fluids, dose of Reglan and Tylenol to see if this improves her headache and CBC, CMP, hCG as well as Rh. Patient is a positive on RH so she would not require RhoGAM. Ultrasound does not show any perigestational bleed, size appropriate for dates. HCG level continues to improve. Patient did feel better after medication. Plan to have patient follow-up with OBGYN she is an appointment on March 15 discussed that she can call to see if they would like to see her sooner, we discussed return precautions and that patient is on pelvic rest at this time. Discharge Plan Departure Patient Disposition: Home Clinical Impression: Vaginal bleeding in Instructions: DI for Vaginal Bleeding During Activity Restrictions/Additional Instructions: Follow-up with Dr. Raygoza, touch base with the office to see if they would like to see you before your scheduled appointment on March 15. Your imaging today shows 6 weeks 1 day gestational age with a heart rate of 121. You can take Tylenol up to a 1000 mg every 6 hours as needed for headaches. Please return for rapidly worsening abdominal pain, passing out, worsening headaches, persistent vomiting, new numbness, tingling weakness, loss of bowel or bladder control, vaginal bleeding with more than 1 pad an hour or very large clots or other new or concerning changes. Prescriptions: No Action levothyroxine 25 mcg capsule 25 mcg PO DAILY Qty: 90 3RF progesterone micronized 200 mg capsule 200 mg PO BEDTIME Qty: 30 3RF Rx Instructions: Take one by mouth daily. metformin 500 mg tablet,ER jose carlos.retention 24 hr 500 mg PO TID Referrals: Slyvie Raygoza MD [Physician] - Natasha Mckinnon DO [Primary Care Provider] - Stand Alone Forms: Patient Portal/API
[2022-02-24 11:14] LABS: Add Manual Diff / Slide Review NO; Basophils Absolute Auto 0 /uL (0-100); Basophils Percent Auto 0.3 % (0-2); Eosinophils Absolute Auto 100 /uL (0-450); Eosinophils Percent Auto 1.2 % (2-4); Hematocrit 37.8 % (36-46); Hemoglobin 12.4 g/dL (12.0-16.0); Lymphocytes Absolute Auto 2600 /uL (1100-4500); Lymphocytes Percent Auto 38.1 % (25-40); Mean Corpuscular HGB Conc 32.9 % (30-36); Mean Corpuscular Hemoglobin 27.5 PG (26-34); Mean Corpuscular Volume 83.6 fL (80-100); Monocytes Absolute Auto 600 /uL (0-900); Monocytes Percent Auto 8.3 % (3-14); Neutrophils Absolute Auto 3600 /uL (1500-7000); Neutrophils Percent Auto 52.1 % (50-75); Platelet Count 276 X10^3/uL (150-400); Red Blood Cell Count 4.52 X10^6/uL (4.0-5.2); Red Cell Distribution Width 14.3 % (11.6-14.8); White Blood Cell Count 6.9 X10^3/uL (4.5-11.0)
[2022-02-24 11:27] LABS: Alanine Aminotransferase 19 IU/L (<35); Alkaline Phosphatase 60 U/L (38-126); Aspartate Aminotransferase 23 IU/L (14-36); BUN Creatinine Ratio 13.7 (6-22); Bilirubin Total 0.4 mg/dL (0.2-1.3); Blood Urea Nitrogen 10 mg/dL (7-17); Calcium 9.3 mg/dL (8.4-10.2); Carbon Dioxide 25 mmol/L (22-32); Chloride 101 mmol/L (98-107); Estimated Glomerular Filt Rate > 60 mL/min (>60); Glucose 102 mg/dL (70-100); HEMOLYSIS < 15 (0-50); Potassium 3.6 mmol/L (3.4-5.1); Sodium 139 mmol/L (137-145)
[2022-02-24] MEDS: ACETAMINOPHEN 325 MG TABLET 975 MG PO (11:28)
[2022-02-24] MEDS: METOCLOPRAMIDE 10 MG/2 ML INJ IV (11:28)
[2022-02-24] MEDS: SODIUM CHLORIDE 0.9% 1,000 ML 1000 ML IV (11:29)
[2022-02-24 11:59] LABS: Thyroid Stimulating Hormone 4.23 uIU/mL (0.47-4.68)
[2022-02-24 12:11] LABS: HCG Quantitative /Beta subunit 17949 mIU/mL
[2022-02-24 16:13] LABS: Albumin 4.5 g/dL (3.5-5.0); Albumin Globulin Ratio 1.3 (1.0-2.8); Globulin 3.5 g/dL (1.7-4.1)
== END 2022-02-24 13:47 | disposition home or self-care (01) ==
PROVIDERS: Emergency Provider Emergency Medicine; PCP Family Medicine
DX: O20.9 Hemorrhage in early pregnancy, unspecified (principal); R53.83 Other fatigue; Z3A.01 Less than 8 weeks gestation of pregnancy
CPT/HCPCS: 36415; 76801; 80053; 81003; 81025; 84439; 84443; 84702; 85025; 86900; 86901; 96374; 99284; J2765

== ENCOUNTER → 2022-02-24 14:37 | Outpatient (CLI) | payer OTHER, SELFPAY ==
[2022-02-24 15:23] LABS: Free T4, Direct Thyroxine 0.92 ng/dL (0.78-2.19)
== END ==
PROVIDERS: PCP Family Medicine; Visit Provider Obstetrics & Gynecology
DX: R53.83 Other fatigue (principal)
CPT/HCPCS: 84439

== ENCOUNTER 2022-03-17 09:23 | Day surgery (SDC) | payer OTHER, SELFPAY ==
--- NOTE | 2022-03-17 | PATH_ITS ---
[facility] Accession Number: [id number] No. of containers..01 Tissue . 01 Material submitted: . product of conception - PRODUCTS OF CONCEPTION (TWINS) . 01 Clinical history: . SUCTION D/C . 01 Diagnosis: A. Products of Conception (Twins), Curettage: Immature chorionic villi with mild architectural abnormalities; see comment. No evidence of malignancy. Background secretory endometrium and decidua. Focal features of implantation site. Fibrin and inflammatory debris. . COMMENT: Mild architectural abnormalities of the hydropic villi are seen, with some scalloping, and rare inclusions, without significant circumferential proliferation, or prominent atypia. A p57 immunohistochemical stain is performed on block A1 in order to assess the chorionic villi, with appropriately staining external controls. P57 highlights cytotrophoblasts and stromal villi, excluding complete molar gestation. . The differential diagnosis includes hydropic abortus versus partial molar gestation. Tissue from block A1 will be sent for DNA ploidy analysis by flow cytometry, and results will be reported in an addendum. . * This test was developed and its performance characteristics determined by [facility]. It has not been cleared or approved by the U.S. Food and Drug Administration. The FDA has determined that such clearance or approval is not necessary. This test is used for clinical purposes. It should not be regarded as investigational or for research. V 03/28/[address] [place] [address] . 01 Comment: Dr. Rodríguez reviewed this case and concurs with the interpretation/diagnosis. . 01 Electronically signed: . Denise Brewer MD, Pathologist NPI- [id number] . 01 Gross description: . The specimen is received in formalin labeled with the patient's name, , and products of conception (twins), and consists of multiple fragments of variable de souza to spongy soft tissue admixed with hemorrhagic material aggregating to 8.2 x 7.9 x 1.2 cm. No tissue is identified. dermatology sales representative sections are submitted in cassettes A1-A2. ([id number]) /FRR 03/18/2022 1501 Local . 01 Pathologist provided ICD-10: O02.1 . 01 CPT . 856788, V05637 Specimen Comment: A courtesy copy of this report has been sent to [phone] Performed at: 01 [facility] [address] [place] [address], [place], [place] [id number] MD Jacinto Valdivia MD Phone: [phone]
[2022-03-17 10:26] VITALS: BP 136/89; PULSE 82; RESP 16; TEMP 36.2; O2SAT 100
[2022-03-17] MEDS: LACTATED RINGERS 1,000 ML 42 ML IV (10:29)
--- NOTE | 2022-03-17 10:44 | PM.GYNHP.1 ---
History of Present Illness History of Present Illness Narrative: Krystle Cruz is a 36 year old A2, LMP 01/13/2022, who was admitted this time for suction curettage due to missed discovered on ultrasound performed by Dr. Ángela Raygoza on 03/15/2022. After discussion of all options, the patient has opted termination of the by suction curettage and is admitted this time for her scheduled surgery. 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, not currently Infertility Missed (12/2018) Normal colonoscopy Surgical History (Updated 03/03/22 @ 14:12 by Nancy Hall RN) History of removal of skin mole History of surgery (12/24/18) Status post colposcopy (04/16/14) [place] teeth extracted Family History (Updated 03/03/22 @ 14:15 by Nancy Hall RN) Grandfather Heart disease Grandmother Stroke Hypertension Mother Hypertension Grandmother Hypertension Osteoporosis Sister Crohn's disease Endometriosis Family/Other Diabetes mellitus Social History marital status: household members: spouse and children lives independently: Yes caregiver/support person: Yes housing: house pets and animals: Yes (cat, dog, chickens; aware of toxo precautions) education level: college (angelique's degree) occupational status: employed current occupational exposures/hazards: No special ernst needs: No travel history: recent ([place], [place]) seatbelt use: always water heater temp set < 120 deg: Yes working smoke detector in home: Yes fire extinguisher in home: Yes carbon monox detector in home: Yes firearms in home: Yes firearms unloaded and locked: Yes do you feel safe at home: Yes Smoking Status: Never smoker second hand exposure: No alcohol intake: former substance use type: does not use during the past year weight has: remained stable well-balanced diet: daily or most days daily servings fruits/ve-4 caffeine: Yes (1 cup coffee in AM) Type(s) of exercise: none and walking Meds Home Medications and Allergies Home Medications Medication Instructions Recorded Confirmed Type prenat.vits,domingo,[id number] 1 tab PO DAILY 03/03/22 03/17/22 History levothyroxine 25 mcg tablet 25 mcg PO DAILY 03/17/22 03/17/22 History Allergies Allergy/AdvReac Type Severity Reaction Status Date / Time No Known Drug Allergies Allergy Verified 03/17/22 10:24 Review of Systems Review of Systems Narrative: Problem-specific ROS positives included in HPI Exam Vital Signs (past 8 hours): - 03/17/22 10:26 Temperature 97.2 F L Pulse Rate 82 Respiratory Rate 16 Blood Pressure 136/89 Pulse Oximetry 100 Oxygen Delivery Method Room Air Oxygen Delivery Method Room Air Const General: cooperative and comfortable Nutritional Appearance: average body habitus Orientation: alert and oriented x3 HENMT Head: normal to inspection, atraumatic and abrasion Ears: hearing grossly normal bilaterally Face and sinus: face symmetric Eyes General: appearance normal, both eyes and all related structures Conjunctivae: conjunctivae normal Sclera: sclerae normal EOM: EOM intact bilaterally Neck Neck: normal visual inspection Resp Effort & Inspection: normal respiratory effort and able to speak in complete sentences Auscultation: clear to auscultation bilaterally Cardio Rate: regular rate Rhythm: regular rhythm Heart Sounds: S1 normal, S2 normal and no murmurs GI Inspection: normal to inspection Palpation: soft, no hepatosplenomegaly and No tender External Female Exam: normal external appearance and other (No significant bleeding noted) Speculum Exam - Vagina: normal appearance of the vagina and normal vaginal discharge Speculum Exam - Cervix: normal appearance of the cervix and cervical os open Bimanual Exam- Vagina & Uterus: normal bimanual exam, enlarged (6-8 wks) and nontender Bimanual Exam- Adnexa, other: normal adnexae and no masses OB/External & Speculum: cervical os open Extrem General: no calf tenderness Psych Appearance: grossly normal Mental Status: mental status grossly normal Speech and Movement: speech and movement normal Mood: congruent mood Affect: normal affect Attitude: cooperative Thought Process: normal Thought Content: normal Judgment: judgment good Assessment & Plan Assessment and plan (1) Missed : Status: Acute Assessment & Plan narrative: Patient counseled regarding alternatives, risks, benefits, and potential complications associated with suction curettage uterus. Full understanding of the above, a written consent was executed, signed, witnessed this date. Time Spent With Patient Critical Care time: I spent a total of [] minutes of critical care time on this patient's care today; this time is exclusive of procedural time.
--- NOTE | 2022-03-17 11:08 | SUR.OPER ---
Lithotomy on padded OR bed, head on pillow, arms secured on padded arm boards at <90 degrees abduction. Legs secured in padded yellow fins stirrups.
--- NOTE | 2022-03-17 11:30 | PM.PREOP ---
Pre-operative Note COVID-19 Criteria for continued procedure: Non-surgical alternatives not available or appropriate per current SOC Interval Note History & Physical reviewed/Exam performed by Physician: Yes Changes to H&P: No
[2022-03-17 11:59] VITALS: BP 131/71; PULSE 83; RESP 18; TEMP 37.3; O2SAT 99
[2022-03-17 12:04] VITALS: BP 124/70; PULSE 82; RESP 16; O2SAT 99
[2022-03-17 12:10] VITALS: BP 128/61; PULSE 77; RESP 12; O2SAT 99
[2022-03-17 12:17] VITALS: BP 127/70; PULSE 78; RESP 12; TEMP 37; O2SAT 99
--- NOTE | 2022-03-17 12:23 | P.OP_ITS ---
Operative Date/Time/Diagnoses Date of procedure: 03/17/22 Time of procedure: 11:30 Pre-op diagnosis: Missed Post-op diagnosis: same Procedure & Clinicians Procedure: Procedures Operation Date: 03/17/22 10:45 Actual Procedure Side Surgeon p Dilation and Curettage-Suction Not Applicable Cheko Rhodes MD Indications: Krystle Cruz is a 36 year old A2, LMP 01/13/2022, who was admitted this time for suction curettage due to missed discovered on ultrasound performed by Dr. Ángela Raygoza on 03/15/2022.? After discussion of all options, the patient has opted termination of the by suction curettage and is admitted this time for her scheduled surgery. Blood type is A+. Surgeon: Cheko Rhodes Anesthesia Type: General Operative Notes Findings: The uterus is 6-8 weeks in size pre-evacuation and contains moderate amounts products of conception Closure Type: not applicable Specimen(s): uterine contents Estimated blood loss (mL): 50 Blood products transfused: none Procedure in detail: With the patient under satisfactory general anesthesia modified dorsal lithotomy position, the vagina, abdomen, and perineum prepped and draped usual fashion for suction curettage of the uterus. A pre-surgical safety time-out was then taken in accordance with [facility] Main OR protocols. A bimanual examination under anesthesia was then performed. [place] speculum was then inserted in the vagina and the cervix visualized. IM Pitocin 10 units was administered. The anterior lip of the cervix was then grasped with a single-tooth tenaculum. The endocervical canal was then dilated Hegar dilators to 7 mm and a 7 mm curved suction curette was introduced into the endometrial cavity. Suction was applied and products of conception were removed from the endometrial cavity. A sharp curette was then introduced in gentle probing/curettage of the endometrial cavity demonstrated cavity was indeed empty and a final suction curettage pass was performed to assure the uterus was empty. The tenaculum was then removed from the anterior lip of the cervix and there was no bleeding evident. The speculum was then removed from the vagina the patient awakened from anesthesia. She was then transferred to the PACU for a period of observation and recovery after having tolerated procedure well. Complications: none Post-operative Condition: stable Disposition: PACU Plan for aftercare: Routine postoperative care with follow-up planned for 2 weeks following her surgery.
--- NOTE | 2022-03-17 12:40 | SUR.PHASEII ---
Patient with minimal vaginal bleeding at discharge. Denies any dizziness, pain or nausea with ambulation. VSS. All instructions reviewed with patient. Home in stable condition.
== END 2022-03-17 12:40 | disposition home or self-care (01) ==
PROVIDERS: Referring Provider Obstetrics & Gynecology; Visit Provider Obstetrics & Gynecology
PROC: (CPT 58120; principal; 2022-03-17 10:45)
DX: O02.1 Missed abortion (principal); Z3A.01 Less than 8 weeks gestation of pregnancy
CPT/HCPCS: 59820; J1100; J2250; J2405; J2590; J2704; J3010

== ENCOUNTER → 2022-08-07 17:17 | Outpatient (CLI) | payer OTHER, SELFPAY ==
[2022-08-07 18:38] LABS: HCG Quantitative /Beta subunit 668.9 mIU/mL
== END ==
PROVIDERS: Referring Provider Obstetrics & Gynecology; Visit Provider Obstetrics & Gynecology
DX: Z34.90 Encounter for supervision of normal pregnancy, unspecified, unspecified trimester (principal)
CPT/HCPCS: 36415; 84144; 84702

== ENCOUNTER → 2022-08-09 16:54 | Outpatient (CLI) | payer OTHER, SELFPAY | PROVIDERS: Referring Provider Obstetrics & Gynecology; Visit Provider Obstetrics & Gynecology | DX: N91.2 Amenorrhea, unspecified (principal) | CPT/HCPCS: 36415; 84702 ==

== ENCOUNTER → 2022-08-24 11:08 | Outpatient (CLI) | payer OTHER, SELFPAY ==
--- NOTE | 2022-08-24 11:08 | DI.US.S_ITS ---
PROCEDURE: US OB <= 14 WEEKS FETUS INDICATIONS: DATING AND VIABILITY OUTSIDE/PRIOR DATING DATA: Last menstrual period (LMP): 07/07/2022 LMP-based estimated date of delivery (DANA): 04/13/2023. First dating scan (date and location): 08/24/2022. Estimated date of delivery (DANA) from first dating scan: 03/31/2023. TECHNIQUE: Real-time scanning was performed of the fetus and maternal pelvic organs, with image documentation. Endovaginal scanning was also performed to better visualize the fetus and maternal ovaries. COMPARISON: [facility], US, US OB <= 14 WEEKS FETUS, 03/15/2022, 15:52. FINDINGS: Gestational sac: Intrauterine gestational sac with mean sac diameter of 3.5 cm corresponding to 8 weeks 5 days. Yolk sac is identified and no pole at this time. Maternal organs: Right ovary within normal limits. Left ovary not visualized. IMPRESSION: Intrauterine gestational sac with mean sac diameter 3.5 cm corresponding to 8 weeks 5 days and a yolk sac is seen. No pole at this time. Findings are suspicious for failure and clinical correlation is recommended. If indicated short-term follow-up ultrasound could be performed. We strive to produce accurate, complete, and clear reports of imaging services. To assist us in improving patient care, this report was composed using standard report templates and voice recognition software. Therefore, it may contain abnormal punctuation, insertions and/or omissions. Occasional wrong-word or sound-alike substitutions may occur. Though we review the report and make efforts to correct it, we do recommend that the report be read carefully in proper context to recognize any text inaccuracies. Dictated by: Kian Lindo [facility] Interpreted: Benjamin Hatch MD on 08/24/2022 at 13:27 Approved by: Benjamin Hatch M.D. on 08/24/2022 at 17:12
== END ==
PROVIDERS: Referring Provider Obstetrics & Gynecology; Visit Provider Obstetrics & Gynecology
DX: Z36.87 Encounter for antenatal screening for uncertain dates (principal); O36.80X0 Pregnancy with inconclusive fetal viability, not applicable or unspecified
CPT/HCPCS: 76801; 76817

== ENCOUNTER → 2022-09-28 08:47 | Outpatient (CLI) | payer OTHER, SELFPAY ==
--- NOTE | 2022-09-28 08:49 | DI.US.S_ITS ---
PROCEDURE: US PELVIC COMPLETE INDICATIONS: SPONTANEOUS . R/O RETAINED PRODUCTS OF CONCEPTION. TECHNIQUE: Real-time scanning was performed of the pelvic organs, with image documentation. Additional endovaginal scanning was necessary due to incomplete visualization of the adnexal and endometrial structures by transabdominal scanning. COMPARISON: [facility], US, US PELVIC COMPLETE, 08/31/2022, 10:42. FINDINGS: Uterus: Uterus is anteverted and normal in size at 9.3 x 6.0 x 3.9 cm. The myometrium is mildly heterogeneous. The endometrium measures 10 mm combined thickness. Mildly heterogeneous echotexture of the endometrium. Normal vascularity. Ovaries: The right ovary measures 2.7 x 2.8 x 1.9 cm, with a calculated ovarian volume of 7 cc. Left ovary not visualized. Other: No pathologic free abdominal or pelvic fluid. IMPRESSION: Endometrium is mildly heterogeneous. Normal vascularity. Findings do not suggest retained products of conception. Correlate with beta HCG We strive to produce accurate, complete, and clear reports of imaging services. To assist us in improving patient care, this report was composed using standard report templates and voice recognition software. Therefore, it may contain abnormal punctuation, insertions and/or omissions. Occasional wrong-word or sound-alike substitutions may occur. Though we review the report and make efforts to correct it, we do recommend that the report be read carefully in proper context to recognize any text inaccuracies. Dictated by: Nelson Spain M.D. on 09/28/2022 at 13:06 Approved by: Nelson Spain M.D. on 09/28/2022 at 14:46
== END ==
PROVIDERS: Referring Provider Specialist; Visit Provider Specialist
DX: O02.1 Missed abortion (principal)
CPT/HCPCS: 76830; 76856

== ENCOUNTER → 2022-10-11 15:15 | Outpatient (CLI) | payer OTHER, SELFPAY ==
[2022-10-11 16:58] LABS: Free T4, Direct Thyroxine 1.01 ng/dL (0.78-2.19)
[2022-10-11 17:11] LABS: Thyroid Stimulating Hormone 2.02 uIU/mL (0.47-4.68)
[2022-11-07 18:36] LABS: Cardiolipin IgA Borderline (.)
== END ==
PROVIDERS: Referring Provider Specialist; Visit Provider Specialist
DX: O09.299 Supervision of pregnancy with other poor reproductive or obstetric history, unspecified trimester (principal); N96 Recurrent pregnancy loss
CPT/HCPCS: 36415; 81291; 83520; 84439; 84443; 86147; 86148

== ENCOUNTER → 2023-02-12 16:00 | Outpatient (CLI) | payer OTHER, SELFPAY ==
[2023-02-12 17:53] LABS: HCG Quantitative /Beta subunit 523.2 mIU/mL
[2023-02-12 18:20] LABS: Free T4, Direct Thyroxine 1.08 ng/dL (0.78-2.19)
[2023-02-12 18:34] LABS: Thyroid Stimulating Hormone 2.55 uIU/mL (0.47-4.68)
== END ==
PROVIDERS: Referring Provider Specialist; Visit Provider Specialist
DX: N91.2 Amenorrhea, unspecified (principal); N96 Recurrent pregnancy loss
CPT/HCPCS: 36415; 84144; 84439; 84443; 84702

== ENCOUNTER → 2023-02-14 15:12 | Outpatient (CLI) | payer OTHER, SELFPAY ==
[2023-02-14 16:45] LABS: HCG Quantitative /Beta subunit 1064.6 mIU/mL
== END ==
PROVIDERS: Referring Provider Specialist; Visit Provider Specialist
DX: N91.2 Amenorrhea, unspecified (principal); N96 Recurrent pregnancy loss
CPT/HCPCS: 36415; 84702

== ENCOUNTER → 2023-02-26 16:10 | Outpatient (CLI) | payer OTHER, SELFPAY ==
[2023-02-26 17:48] LABS: HCG Quantitative /Beta subunit 11011 mIU/mL
== END ==
PROVIDERS: PCP Obstetrics & Gynecology; Referring Provider Specialist; Visit Provider Specialist
DX: O09.299 Supervision of pregnancy with other poor reproductive or obstetric history, unspecified trimester (principal); N96 Recurrent pregnancy loss
CPT/HCPCS: 36415; 84144; 84702

== ENCOUNTER → 2023-02-28 15:04 | Outpatient (CLI) | payer OTHER, SELFPAY ==
[2023-02-28 16:11] LABS: HCG Quantitative /Beta subunit 12311 mIU/mL
== END ==
PROVIDERS: PCP Obstetrics & Gynecology; Referring Provider Obstetrics & Gynecology; Visit Provider Obstetrics & Gynecology
DX: N96 Recurrent pregnancy loss (principal)
CPT/HCPCS: 36415; 84702

== ENCOUNTER → 2023-03-09 14:49 | Outpatient (CLI) | payer OTHER, SELFPAY ==
[2023-03-09 15:14] LABS: Add Manual Diff / Slide Review NO; Basophils Absolute Auto 0 /uL (0-100); Basophils Percent Auto 0.5 % (0-2); Eosinophils Absolute Auto 100 /uL (0-450); Eosinophils Percent Auto 1.4 % (2-4); Hemoglobin 12.2 g/dL (12.0-16.0); Lymphocytes Absolute Auto 2000 /uL (1100-4500); Lymphocytes Percent Auto 28.3 % (25-40); Mean Corpuscular Hemoglobin 27.7 PG (26-34); Mean Corpuscular Volume 81.5 fL (80-100); Monocytes Absolute Auto 700 /uL (0-900); Monocytes Percent Auto 9.4 % (3-14); Neutrophils Absolute Auto 4200 /uL (1500-7000); Neutrophils Percent Auto 60.4 % (50-75); Platelet Count 273 X10^3/uL (150-400); Red Blood Cell Count 4.42 X10^6/uL (4.0-5.2); Red Cell Distribution Width 15.8 % (11.6-14.8)
[2023-03-11 13:03] LABS: Varicella IgG Antibody 1079 index (Immune >165)
[2023-03-12 16:22] LABS: HIV 1 & 2 Ab/Ag 4th Gen Combo NEGATIVE (NEGATIVE); Hep C Virus Ab w/Reflex Quant NEGATIVE s/c (NEGATIVE); Hepatitis B Surface Antigen NEGATIVE s/c (NEGATIVE); Rubella Antibody IgG 23.5 IU/mL (>15)
[2023-03-13 05:37] LABS: RPR Screen Non Reactive (Non Reactive)
== END ==
PROVIDERS: PCP Obstetrics & Gynecology; Referring Provider Specialist; Visit Provider Specialist
DX: O09.299 Supervision of pregnancy with other poor reproductive or obstetric history, unspecified trimester (principal)
CPT/HCPCS: 80055; 86787; 86803; 86850; 86900; 86901; 87389; 87491; 87591

== ENCOUNTER → 2023-03-09 | Outpatient (CLI) | payer OTHER, SELFPAY ==
[2023-03-09 19:57] LABS: Urine N gonorrhoeae NOT DETECTED
[2023-03-09 20:06] LABS: Urine Chlamydia NOT DETECTED
== END ==
PROVIDERS: PCP Obstetrics & Gynecology; Visit Provider Specialist
DX: O09.299 Supervision of pregnancy with other poor reproductive or obstetric history, unspecified trimester (principal); Z34.01 Encounter for supervision of normal first pregnancy, first trimester
CPT/HCPCS: 87491; 87591

== ENCOUNTER → 2023-05-30 15:10 | Outpatient (CLI) | payer OTHER, SELFPAY ==
--- NOTE | 2023-05-30 | DI.MG.S_ITS ---
BILATERAL DIGITAL SCREENING MAMMOGRAM 3D/2D WITH CAD: 05/30/2023 CLINICAL: Routine screening. Comparison is made to exams dated: 10/26/2020 mammogram and 10/26/2020 [facility]. Both breasts are heterogeneously dense, which may obscure small masses (category c / 51-75% glandular tissue). Current study was also evaluated with a Computer Aided Detection (CAD) system. No significant masses, calcifications, or other findings are seen in either breast. There has been no significant interval change. IMPRESSION: NEGATIVE There is no mammographic evidence of malignancy. A 1 year screening mammogram is recommended. Based on the Tyrer Cuzick model (a risk assessment model) the patient's lifetime risk is 10.2% and her 10 year risk is 1.3%. According to the ACR, ACS, and NCCN guidelines, an annual breast MRI exam along with mammogram is recommended if the patient's lifetime risk is 20% or greater. This exam was interpreted at Station ID: [id number]. NOTE: For mammograms, a report in lay terms will be sent to the patient. Approximately 15% of breast malignancies will not be visualized mammographically. In the management of a palpable breast mass, a negative mammogram must not discourage biopsy of a clinically suspicious lesion. Electronically Signed By: Trent gonzalez/mahnaz:05/31/2023 09:25:53 letter sent: Normal Exam ACR BI-RADS Category 1: Negative 3341F
== END ==
LOC: MAMMO 15:11
PROVIDERS: Referring Provider Obstetrics & Gynecology; Visit Provider Obstetrics & Gynecology
DX: Z12.31 Encounter for screening mammogram for malignant neoplasm of breast (principal); R92.333 Mammographic heterogeneous density, bilateral breasts
CPT/HCPCS: 77063; 77067

== ENCOUNTER → 2023-07-18 14:58 | Outpatient (CLI) | payer OTHER, SELFPAY ==
[2023-07-18 17:05] LABS: HCG Quantitative /Beta subunit 1421.8 mIU/mL
== END ==
LOC: LAB 14:59
PROVIDERS: Referring Provider Obstetrics & Gynecology; Visit Provider Obstetrics & Gynecology
DX: N96 Recurrent pregnancy loss (principal); N91.2 Amenorrhea, unspecified
CPT/HCPCS: 36415; 84702

== ENCOUNTER → 2023-07-20 14:42 | Outpatient (CLI) | payer OTHER, SELFPAY | PROVIDERS: Referring Provider Obstetrics & Gynecology; Visit Provider Obstetrics & Gynecology | DX: N96 Recurrent pregnancy loss (principal); N91.2 Amenorrhea, unspecified | CPT/HCPCS: 36415; 84144; 84702 ==

== ENCOUNTER → 2023-08-28 12:10 | Outpatient (CLI) | payer OTHER, SELFPAY ==
[2023-08-28 14:02] LABS: Natera Collection Specimen Collected
== END ==
PROVIDERS: Referring Provider Specialist; Visit Provider Specialist
DX: O09.521 Supervision of elderly multigravida, first trimester (principal); Z3A.10 10 weeks gestation of pregnancy
CPT/HCPCS: 36415

== ENCOUNTER → 2023-09-12 11:17 | Outpatient (CLI) | payer OTHER, SELFPAY ==
[2023-09-12 14:33] LABS: Urine N gonorrhoeae NOT DETECTED
[2023-09-12 14:35] LABS: Urine Chlamydia NOT DETECTED
== END ==
PROVIDERS: Visit Provider Obstetrics & Gynecology
DX: Z11.3 Encounter for screening for infections with a predominantly sexual mode of transmission (principal); Z3A.12 12 weeks gestation of pregnancy
CPT/HCPCS: 87491; 87591

== ENCOUNTER → 2023-09-17 12:31 | Outpatient (CLI) | payer OTHER, SELFPAY ==
[2023-09-17 13:52] LABS: Add Manual Diff / Slide Review NO; Basophils Absolute Auto 0 /uL (0-100); Basophils Percent Auto 0.2 % (0-2); Eosinophils Absolute Auto 100 /uL (0-450); Eosinophils Percent Auto 1.1 % (2-4); Hematocrit 35.4 % (36-46); Hemoglobin 12.1 g/dL (12.0-16.0); Lymphocytes Absolute Auto 1900 /uL (1100-4500); Lymphocytes Percent Auto 21.2 % (25-40); Mean Corpuscular HGB Conc 34.2 % (30-36); Mean Corpuscular Hemoglobin 28.4 PG (26-34); Mean Corpuscular Volume 82.9 fL (80-100); Monocytes Absolute Auto 600 /uL (0-900); Monocytes Percent Auto 7.4 % (3-14); Neutrophils Absolute Auto 6100 /uL (1500-7000); Neutrophils Percent Auto 70.1 % (50-75); Platelet Count 241 X10^3/uL (150-400); Red Blood Cell Count 4.27 X10^6/uL (4.0-5.2); Red Cell Distribution Width 14.2 % (11.6-14.8); White Blood Cell Count 8.7 X10^3/uL (4.5-11.0)
[2023-09-17 14:31] LABS: Free T4, Direct Thyroxine 0.86 ng/dL (0.78-2.19)
[2023-09-17 14:45] LABS: Thyroid Stimulating Hormone 0.972 uIU/mL (0.47-4.68)
[2023-09-17 15:45] LABS: Hepatitis B Surface Antigen NEGATIVE s/c (NEGATIVE); Rubella Antibody IgG 21.6 IU/mL (>15)
[2023-09-17 16:02] LABS: HIV 1 & 2 Ab/Ag 4th Gen Combo NEGATIVE (NEGATIVE); Hep C Virus Ab w/Reflex Quant NEGATIVE s/c (NEGATIVE)
[2023-09-19 08:39] LABS: Varicella IgG Antibody 943 index (Immune >165)
[2023-09-25 10:09] LABS: RPR Screen Non Reactive (Non Reactive)
== END ==
PROVIDERS: Specialist; Referring Provider Obstetrics & Gynecology; Visit Provider Obstetrics & Gynecology
DX: O09.299 Supervision of pregnancy with other poor reproductive or obstetric history, unspecified trimester (principal); Z3A.12 12 weeks gestation of pregnancy
CPT/HCPCS: 80055; 84439; 84443; 86787; 86803; 86850; 86900; 86901; 87389

== ENCOUNTER 2023-10-13 11:07 | Emergency (ER) | payer OTHER, SELFPAY ==
[2023-10-13 11:16] VITALS: BP 163/81; PULSE 100; RESP 17; TEMP 36.3; O2SAT 100; BMI 37.9
--- NOTE | 2023-10-13 11:24 | DI.US.S_ITS ---
PROCEDURE: US OB >= 14 WEEKS FETUS INDICATIONS: @ 15 weeks / spotting, known demise per tech comments. OUTSIDE/PRIOR DATING DATA: Last menstrual period (LMP): 06/18/2023. LMP-based estimated date of delivery (DANA): 03/24/2024. TECHNIQUE: Real-time scanning was performed of the fetus, with image documentation and biometric measurements. Endovaginal scanning: Now COMPARISON: [facility], , OB >= 14 WEEKS FETUS, 10/12/2023, 10:15. FINDINGS: General: A single intrauterine gestation is present. Placenta: Placental position is anterior. Amniotic fluid index: Not measured. heart rate there is no cardiac activity. Maternal cervical canal: Grossly normal without funneling. biometrics: Biparietal diameter: 14 weeks 1 day Head circumference: 15 weeks 0 days Abdominal circumference: 15 weeks 2 days Femur length: 14 weeks 5 days Clinically estimated gestational age: 16 weeks 5 days Composite gestational age from present scan: 14 weeks 6 days Estimated weight and percentile: Not reported Anatomic survey: Not performed IMPRESSION: Intrauterine demise with measurements correlating with 14 weeks 6 days gestational age. We strive to produce accurate, complete, and clear reports of imaging services. To assist us in improving patient care, this report was composed using standard report templates and voice recognition software. Therefore, it may contain abnormal punctuation, insertions and/or omissions. Occasional wrong-word or sound-alike substitutions may occur. Though we review the report and make efforts to correct it, we do recommend that the report be read carefully in proper context to recognize any text inaccuracies. Dictated by: Tanesha Serrano M.D. on 10/13/2023 at 11:59 Approved by: Tanesha Serrano M.D. on 10/13/2023 at 12:04
--- NOTE | 2023-10-13 11:31 | EKG_ITS ---
[address] [address] Test Date: 2023-10-13 Pat Name: Krystle Cruz Department: [facility] Room: Gender: Female Dictaphone Transcriber: HELIO : 1985 Requested By: Order Number: [id number] Reading MD: Samm Mondragon MD Measurements Intervals [place] Rate: 91 P: 42 MT: 188 QRS: -16 QRSD: 90 T: 27 QT: 366 QTc: 450 Interpretive Statements Normal sinus rhythm Electronically Signed On 10-13-2023 21:34:36 PDT by Samm Mondragon MD
[2023-10-13 12:04] LABS: Add Manual Diff / Slide Review NO; Basophils Absolute Auto 0 /uL (0-100); Basophils Percent Auto 0.1 % (0-2); Eosinophils Absolute Auto 100 /uL (0-450); Eosinophils Percent Auto 0.9 % (2-4); Hematocrit 33.8 % (36-46); Hemoglobin 11.5 g/dL (12.0-16.0); Lymphocytes Absolute Auto 1400 /uL (1100-4500); Lymphocytes Percent Auto 21.6 % (25-40); Mean Corpuscular Hemoglobin 27.7 PG (26-34); Mean Corpuscular Volume 81.6 fL (80-100); Monocytes Absolute Auto 600 /uL (0-900); Monocytes Percent Auto 9.9 % (3-14); Neutrophils Absolute Auto 4400 /uL (1500-7000); Neutrophils Percent Auto 67.5 % (50-75); Platelet Count 243 X10^3/uL (150-400); Red Blood Cell Count 4.14 X10^6/uL (4.0-5.2); Red Cell Distribution Width 14.5 % (11.6-14.8); White Blood Cell Count 6.5 X10^3/uL (4.5-11.0)
[2023-10-13 12:15] LABS: INR 1.1 (0.9-1.3); Prothrombin Time 12.2 SECONDS (9.4-12.5)
[2023-10-13 12:18] LABS: PTT Partial Thromboplastin Tim 31 SECONDS (25.1-36.5)
[2023-10-13 12:19] LABS: Alanine Aminotransferase 18 IU/L (<35); Albumin 3.8 g/dL (3.5-5.0); Albumin Globulin Ratio 1.3 (1.0-2.8); Alkaline Phosphatase 60 U/L (38-126); Aspartate Aminotransferase 24 IU/L (14-36); BUN Creatinine Ratio 10.7 (6-22); Bilirubin Total 0.4 mg/dL (0.2-1.3); Blood Urea Nitrogen 6 mg/dL (7-17); Carbon Dioxide 19 mmol/L (22-32); Chloride 107 mmol/L (98-107); Creatine Kinase 125 U/L (30-135); Estimated Glomerular Filt Rate > 60 mL/min (>60); Glucose 107 mg/dL (70-100); HEMOLYSIS < 15 (0-50); Lipase 75 U/L (23-300); Magnesium 1.8 mg/dL (1.6-2.3); Potassium 3.7 mmol/L (3.4-5.1); Sodium 135 mmol/L (137-145); Total Protein 6.8 g/dL (6.3-8.2)
[2023-10-13 12:28] LABS: NT-proBNP (BNP-Adult 18+) < 20 pg/mL (<125)
[2023-10-13 12:33] LABS: Troponin I < 0.012 ng/mL (0.01-0.034)
[2023-10-13 12:37] LABS: HCG Quantitative /Beta subunit 4682.8 mIU/mL
[2023-10-13 12:47] VITALS: BP 142/79; PULSE 95; RESP 20; O2SAT 99
--- NOTE | 2023-10-13 12:52 | PC.NURSE ---
Informed of demise yesterday per Dr. Raygoza. States feeling anxious due to not having anything scheduled to deliver the fetus.
--- NOTE | 2023-10-13 13:43 | ED_ITS ---
HPI - Chest Pain General Chief Complaint: Chest Pain Stated Complaint: Feels sick Here yesterday Time Seen by Provider: 10/13/23 13:38 Source: patient Mode of arrival: Ambulatory History of Present Illness HPI narrative: 38-year-old female with obstetrical history G9, SAB 5, with 3 living children, current with care Dr. Raygoza, last menstrual period 06/16/2023, EDC 03/24/2024, had ultrasound yesterday with Dr. Raygoza confirming demise, to be scheduled for possible D and C procedure. Has had some small amount of cramping and vaginal bleeding. This morning she was doing activities around the house and felt lightheaded, with palpitations and fast heart rate sensation, did not pass out, did not have associated chest pain or shortness of breath. Symptoms resolved on arrival here. No significant bleeding or abdominal pain. Related Data Home Medications Medication Instructions Recorded Confirmed prenat.vits,domingo,lgd-emkq-azayl 1 tab PO DAILY 03/03/22 10/12/23 folic acid 1 mg tablet 1 mg PO DAILY 02/20/23 10/12/23 Previous Rx's Medication Instructions Recorded levothyroxine 25 mcg tablet 25 mcg PO DAILY #90 tabs 06/12/23 progesterone micronized 200 mg 200 mg PO BEDTIME #90 caps 07/17/23 capsule Allergies Allergy/AdvReac Type Severity Reaction Status Date / Time No Known Drug Allergies Allergy Verified 10/13/23 11:16 Review of Systems Review of Systems Narrative: see HPI Patient History Medical History (Updated 10/13/23 @ 15:20 by Mauricio Jaquez MD) Missed with demise before 20 completed weeks of gestation History of recurrent miscarriages, 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 Degenerative disc disease Normal colonoscopy Missed (12/2018) Infertility Abnormal Pap smear of cervix (03/2013) Surgical History (Updated 03/03/22 @ 14:12 by Nancy Hall RN) History of removal of skin mole [place] teeth extracted History of surgery (12/24/18) Status post colposcopy (04/16/14) Family History (Updated 03/03/22 @ 14:15 by Nancy Hall RN) Grandfather Heart disease Grandmother Stroke Hypertension Mother Hypertension Grandmother Hypertension Osteoporosis Sister Crohn's disease Endometriosis Family/Other Diabetes mellitus Social History marital status: household members: spouse and children lives independently: Yes caregiver/support person: Yes housing: house pets and animals: Yes (cat, dog, chickens; aware of toxo precautions) education level: college occupational status: employed current occupational exposures/hazards: No special ernst needs: No travel history: recent seatbelt use: always water heater temp set < 120 deg: Yes working smoke detector in home: Yes fire extinguisher in home: Yes carbon monox detector in home: Yes firearms in home: Yes firearms unloaded and locked: Yes do you feel safe at home: Yes Smoking Status: Never smoker second hand exposure: No alcohol intake: former substance use type: does not use during the past year weight has: remained stable well-balanced diet: daily or most days daily servings fruits/ve-4 caffeine: Yes (1 cup coffee in AM) Type(s) of exercise: none and walking additional social history: Pt reports no changes in personal or family medical history since last SAB. No changes in personal/family situation either. Chart review completed for OB intake process as pt declines to repeat the OB intake call at this time. The only major change that she reports is that since the MTHFR labs came back she has been doing her homework and has changed her diet to be mostly whole plant and animal products, has mostly cut out grains. She does report that she feels better overall with this diet and is pleased with it. Smoking Status: Never smoker alcohol intake frequency: a few times a week Substance Use Type: does not use Exam Narrative Exam Narrative: GENERAL: Well-developed patient, in mild distress. HEAD: Atraumatic. Normocephalic. EYES: Pupils equal round and reactive. Extraocular motions intact. No scleral icterus. No injection or drainage. ENT: Nose without bleeding, purulent drainage. Throat without erythema, tonsillar hypertrophy or exudate. Airway patent. NECK: Trachea midline. Non tender CARDIOVASCULAR: Regular rate and rhythm without murmurs, gallops, or rubs. RESPIRATORY: Clear to auscultation. Breath sounds equal bilaterally. No wheezes, rales, or rhonchi. GASTROINTESTINAL: Abdomen soft, non-tender, nondistended. EXTREMITIES: No edema or joint tenderness. BACK: Nontender without deformity or crepitance. No flank tenderness. NEURO: AOx3. Grossly nonfocal neuro exam SKIN: No rash or erythema of visible areas Initial Vital Signs Initial Vital Signs: Vital Signs Temperature 97.3 F L 10/13/23 11:16 Pulse Rate 100 H 10/13/23 11:16 Respiratory Rate 17 10/13/23 11:16 Blood Pressure 163/81 H 10/13/23 11:16 Pulse Oximetry 100 10/13/23 11:16 Oxygen Delivery Method Room Air 10/13/23 11:16 Course Orders Ordered: ED Orders 10/13/23 11:24 US OB >= 14 weeks Fetus Stat 10/13/23 11:25 EKG-12 Lead Stat 10/13/23 11:35 Complete Blood Count AUTO DIFF Stat Comprehensive Metabolic Panel Stat HCG Quantitative /Beta subunit Stat Lipase Stat Magnesium Stat NT-proBNP (BNP-Adult 18+) Stat PTT Partial Thromboplastin [place] Stat Prothrombin Time INR Stat Troponin & CK Cardiac Panel Stat Vital Signs Vital signs: Vital Signs - 8 hr 10/13/23 15:32 Pulse Rate 87 Respiratory Rate 16 Blood Pressure 140/79 Pulse Oximetry 98 Oxygen Delivery Method Room Air MDM - Chest Pain Lab Data 10/13/23 11:35 10/13/23 11:35 Labs: Lab Results 10/13/23 Range/Units 11:35 WBC 6.5 (4.5-11.0) X10^3/uL RBC 4.14 (4.0-5.2) X10^6/uL Hgb 11.5 L (12.0-16.0) g/dL Hct 33.8 L (36-46) % MCV 81.6 (80-100) fL MCH 27.7 (26-34) PG MCHC 34.0 (30-36) % RDW 14.5 (11.6-14.8) % Plt Count 243 (150-400) X10^3/uL Neut % (Auto) 67.5 (50-75) % Lymph % (Auto) 21.6 L (25-40) % Pike % (Auto) 9.9 (3-14) % Eos % (Auto) 0.9 L (2-4) % Baso % (Auto) 0.1 (0-2) % Neut # (Auto) 4400 (9580-1391) /uL Lymph # (Auto) 1400 (5334-0528) /uL Pike # (Auto) 600 (0-900) /uL Eos # (Auto) 100 (0-450) /uL Baso # (Auto) 0 (0-100) /uL PT 12.2 (9.4-12.5) SECONDS INR 1.1 (0.9-1.3) APTT 31 (25.1-36.5) SECONDS Sodium 135 L (137-145) mmol/L Potassium 3.7 (3.4-5.1) mmol/L Chloride 107 (98-107) mmol/L Carbon Dioxide 19 L (22-32) mmol/L BUN 6 L (7-17) mg/dL Creatinine 0.56 (0.52-1.04) mg/dL Estimated GFR > 60 (>60) mL/min BUN/Creatinine Ratio 10.7 (6-22) Glucose 107 H (70-100) mg/dL Calcium 9.0 (8.4-10.2) mg/dL Magnesium 1.8 (1.6-2.3) mg/dL Total Bilirubin 0.4 (0.2-1.3) mg/dL AST 24 (14-36) IU/L ALT 18 (<35) IU/L Alkaline Phosphatase 60 (38-126) U/L Total Creatine Kinase 125 (30-135) U/L Troponin I < 0.012 (0.01-0.034) ng/mL NT-Pro-B Natriuret Pep < 20 (<125) pg/mL Total Protein 6.8 (6.3-8.2) g/dL Albumin 3.8 (3.5-5.0) g/dL Globulin 3.0 (1.7-4.1) g/dL Albumin/Globulin Ratio 1.3 (1.0-2.8) Lipase 75 (23-300) U/L HCG, Quant 4682.8 mIU/mL Imaging Data Pelvic ultrasound: Radiologist's Impression: [address] [address] Ultrasound Report Signed Patient: Krystle Cruz MR#: [id number] : 1985 Acct:[id number] Age/Sex: 38 / F Date of Service: 10/13/23 Loc: ED Accession Number: [id number] Procedure: US OB >= 14 weeks Fetus Ordering Provider: Mauricio Jaquez MD PROCEDURE: US OB >= 14 WEEKS FETUS INDICATIONS: @ 15 weeks / spotting, known demise per tech comments. OUTSIDE/PRIOR DATING DATA: Last menstrual period (LMP): 06/18/2023. LMP-based estimated date of delivery (DANA): 03/24/2024. TECHNIQUE: Real-time scanning was performed of the fetus, with image documentation and biometric measurements. Endovaginal scanning: Now COMPARISON: [facility], , OB >= 14 WEEKS FETUS, 10/12/2023, 10:15. FINDINGS: General: A single intrauterine gestation is present. Placenta: Placental position is anterior. Amniotic fluid index: Not measured. heart rate there is no cardiac activity. Maternal cervical canal: Grossly normal without funneling. biometrics: Biparietal diameter: 14 weeks 1 day Head circumference: 15 weeks 0 days Abdominal circumference: 15 weeks 2 days Femur length: 14 weeks 5 days Clinically estimated gestational age: 16 weeks 5 days Composite gestational age from present scan: 14 weeks 6 days Estimated weight and percentile: Not reported Anatomic survey: Not performed IMPRESSION: Intrauterine demise with measurements correlating with 14 weeks 6 days gestational age. We strive to produce accurate, complete, and clear reports of imaging services. To assist us in improving patient care, this report was composed using standard report templates and voice recognition software. Therefore, it may contain abnormal punctuation, insertions and/or omissions. Occasional wrong-word or sound-alike substitutions may occur. Though we review the report and make efforts to correct it, we do recommend that the report be read carefully in proper context to recognize any text inaccuracies. ECG Data Attestation: I personally reviewed and interpreted this ECG as follows: Interpretation: Normal sinus rhythm with rate of 91, no obvious ST segment elevation or depression changes. T-wave inversion lead 3 upright in other contiguous inferior leads. AL 188, QRS 90, QTC 450 MDM Narrative Medical decision making narrative: 38-year-old female currently about 15 weeks, recent demise, with palpitation symptoms early this morning, no syncope or presyncope. No significant bleeding or abdominal cramping, no passage of tissue or clots. She is felt better while here awaiting evaluation. Screening labs unremarkable. EKG unremarkable. Blood type A positive. Case discussed with her drop count associate Dr. Raygoza, who will be contacting her later today as planned to schedule follow up induction of labor versus D&E procedure demise evacuation. Discharge patient home, patient agrees, we will have phone handy on her person so that she does not missed a call from Dr. Raygoza. Discharge Plan Departure Patient Disposition: Home Clinical Impression: demise, Palpitations Activity Restrictions/Additional Instructions: Known recent demise at 15 weeks' gestation, awaiting obstetrics follow up for possible dilation and evacuation, versus induction labor. Fast heart rate sensation this morning, lightheadedness, symptoms resolve without specific treatment. Unclear if this might have been a panic attack, or if this might have been some kind of primary tachyarrhythmia, but symptoms seemed to be resolved. Observed in the emergency department for many hours, no symptoms while in the emergency department. Screening labs unremarkable. Ultrasound done in the emergency department showed demise at 14 weeks 6 days gestation, sounds similar to reported findings yesterday. Case discussed with your drop count associate Dr. Raygoza, she will be in contact with you for scheduling of D&E versus labor induction procedure. Prescriptions: No Action levothyroxine 25 mcg tablet 25 mcg PO DAILY Qty: 90 1RF progesterone micronized 200 mg capsule 200 mg PO BEDTIME Qty: 90 1RF prenat.vits,domingo,gvc-ecsq-urppm Tablet 1 tab PO DAILY folic acid 1 mg tablet 1 mg PO DAILY Patient Comments: methylfolate Referrals: Miscellaneous,Doctor, [Primary Care Provider] - Stand Alone Forms: Patient Portal/API
[2023-10-13 15:32] VITALS: BP 140/79; PULSE 87; RESP 16; O2SAT 98
== END 2023-10-13 15:35 | disposition home or self-care (01) ==
PROVIDERS: Emergency Provider Emergency Medicine
DX: O36.4XX0 Maternal care for intrauterine death, not applicable or unspecified (principal); R00.2 Palpitations; Z3A.14 14 weeks gestation of pregnancy
CPT/HCPCS: 36415; 76811; 80053; 82550; 83690; 83735; 83880; 84484; 84702; 85025; 85610; 85730; 93005; 93010; 99284

== ENCOUNTER 2023-10-16 12:56 | Day surgery (SDC) | payer OTHER, SELFPAY ==
[2023-10-16] VITALS (10 sets, daily range): BP systolic 103–132; BP diastolic 48–86; PULSE 75–92; RESP 12–18; TEMP 36.1–36.6; O2SAT 93–100; BMI 37.8
--- NOTE | 2023-10-16 | DI.US.S_ITS ---
PROCEDURE: US PELVIC LIMITED INDICATIONS: ASSIST IN OR; DNC TECHNIQUE: Real-time transabdominal scanning was performed of the pelvic organs, with image documentation. COMPARISON: [facility], US, US OB >= 14 WEEKS FETUS, 10/12/2023, 10:15. [facility], US, US OB >= 14 WEEKS FETUS, 10/13/2023, 12:38. FINDINGS: Limited sonographic images demonstrate heterogeneous appearance of the endometrium. IMPRESSION: Limited images demonstrate heterogeneous appearance of the endometrium suspicious for retained products. We strive to produce accurate, complete, and clear reports of imaging services. To assist us in improving patient care, this report was composed using standard report templates and voice recognition software. Therefore, it may contain abnormal punctuation, insertions and/or omissions. Occasional wrong-word or sound-alike substitutions may occur. Though we review the report and make efforts to correct it, we do recommend that the report be read carefully in proper context to recognize any text inaccuracies. Dictated by: Jessica Mccrary M.D. on 10/17/2023 at 12:31 Approved by: Jessica Mccrary M.D. on 10/17/2023 at 12:33
--- NOTE | 2023-10-16 13:12 | SUR.OPER ---
Lithotomy on padded OR bed, head on pillow, arms secured on padded arm boards at <90 degrees abduction. Legs secured in padded yellow fins stirrups.
[2023-10-16] MEDS: LACTATED RINGERS 1,000 ML 42 ML IV (13:15)
[2023-10-16] MEDS: ACETAMINOPHEN IV 1,000 MG/100 ML VIAL 400 MG IV (13:18)
--- NOTE | 2023-10-16 13:29 | P.HPOB_ITS ---
History of Present Illness History of Present Illness Reason for admission: other (Intrauterine demise at 14 weeks) Narrative: Krystle Cruz is a 38 year old female with an intrauterine demise at 14 weeks gestation. 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 Degenerative disc disease Normal colonoscopy Missed (12/2018) Infertility Abnormal Pap smear of cervix (03/2013) Surgical History (Updated 03/03/22 @ 14:12 by Nancy Hall, RN) History of removal of skin mole [place] teeth extracted History of surgery (12/24/18) Status post colposcopy (04/16/14) Family History (Updated 03/03/22 @ 14:15 by Nancy Hall, RN) Grandfather Heart disease Grandmother Stroke Hypertension Mother Hypertension Grandmother Hypertension Osteoporosis Sister Crohn's disease Endometriosis Family/Other Diabetes mellitus Social History marital status: household members: spouse and children lives independently: Yes caregiver/support person: Yes housing: house pets and animals: Yes (cat, dog, chickens; aware of toxo precautions) education level: college occupational status: employed current occupational exposures/hazards: No special ernst needs: No travel history: recent seatbelt use: always water heater temp set < 120 deg: Yes working smoke detector in home: Yes fire extinguisher in home: Yes carbon monox detector in home: Yes firearms in home: Yes firearms unloaded and locked: Yes do you feel safe at home: Yes Smoking Status: Never smoker second hand exposure: No alcohol intake: former substance use type: does not use during the past year weight has: remained stable well-balanced diet: daily or most days daily servings fruits/ve-4 caffeine: Yes (1 cup coffee in AM) Type(s) of exercise: none and walking additional social history: Pt reports no changes in personal or family medical history since last SAB. No changes in personal/family situation either. Chart review completed for OB intake process as pt declines to repeat the OB intake call at this time. The only major change that she reports is that since the MTHFR labs came back she has been doing her homework and has changed her diet to be mostly whole plant and animal products, has mostly cut out grains. She does report that she feels better overall with this diet and is pleased with it. Meds Home Medications and Allergies Home Medications Medication Instructions Recorded Confirmed Type prenat.vits,domingo,ekx-oyny-eqstj 1 tab PO DAILY 03/03/22 10/12/23 History folic acid 1 mg tablet 1 mg PO DAILY 02/20/23 10/12/23 History levothyroxine 25 mcg tablet 25 mcg PO DAILY #90 tabs 06/12/23 10/16/23 Rx progesterone micronized 200 mg 200 mg PO BEDTIME #90 caps 07/17/23 10/16/23 Rx capsule Allergies Allergy/AdvReac Type Severity Reaction Status Date / Time No Known Drug Allergies Allergy Verified 10/16/23 13:18 Exam Vital Signs (past 8 hours): - 10/16/23 13:19 Temperature 97 F L Pulse Rate 92 H Respiratory Rate 18 Blood Pressure 132/86 Pulse Oximetry 100 Oxygen Delivery Method Room Air Oxygen Delivery Method Room Air Narrative Exam Narrative: HEENT: No thyromegaly, no anterior cervical or supraclavicular lymphadenopathy. Lungs:Clear to auscultation bilaterally, no wheezes. Cardiovascular: Regular rate and rhythm, no murmurs, rubs, or gallops. Abdomen: No scars. No hepatosplenomegaly. No masses palpable. Fundal height: 14 cm External genitalia: Normal Vagina: Normal Cervix: Parous Bimanual exam: 14 Week size uterus. [place]. Extremities: No edema Assessment & Plan Assessment & Plan narrative: Assessment: 38 year old with an intrauterine demise at 14 wks gestation Plan: D&E The risks, benefits, and alternatives to the procedure were explained to the patient. The risks including bleeding, infection and uterine performation. She understands these risks and agrees to proceed. A full PAR-Q was held and consent form was signed. Time-Based Coding :: [TOTAL MINUTES] spent with patient and on the chart (including review of chart, obtaining history, exam, reviewing outside data, placing orders, documenting exam and treatment plan, and counseling patient) on [DATE].
--- NOTE | 2023-10-16 13:36 | P.OP_ITS ---
Operative Date/Time/Diagnoses Date of procedure: 10/16/23 Time of procedure: 15:33 Pre-op diagnosis: Intrauterine demise at 14+ 4 weeks' gestation Post-op diagnosis: same Procedure & Clinicians Procedure: Procedures Operation Date: 10/16/23 14:00 Actual Procedure Side Surgeon p Dilation and Evacuation Sylvie Raygoza MD Indications: 38-year-old 8 para [id number] with an intrauterine demise at 14+ 4 weeks' gestation. Surgeon: Sylvie Raygoza Anesthesia Type: General Operative Notes Findings: Fourteen week size uterus Closure Type: not applicable Specimen(s): products of conception (A piece of tissue sent for microarray) Applied: catheter (In/out) Estimated blood loss (mL): 1,000 Blood products transfused: none Procedure in detail: After informed consent was obtained, the patient was taken to the operating room where she was placed in the dorsal supine position. After adequate general endotracheal anesthesia was achieved, she was placed in the dorsal lithotomy position, and prepped and draped in the usual sterile fashion. A time-out was performed. 800 mcg of misoprostol was placed rectally. Those gloves were discarded. A bivalve speculum was placed into the vagina and the anterior lip of the cervix was grasped with a single-tooth tenaculum. The cervical os was sequentially dilated to the # 15 Hegar dilator. Using the #12 curved suction, several passes with suction revealed a large gush of amniotic fluid. parts were visualized. Using the ring forceps the remainder of the fetus was removed. Several more passes with suction revealed a large amount of blood. Switching to a smaller curette, #11, several passes with suction revealed more tissue and blood. The ring forceps were used to remove more tissue. The # 9 plastic curette passed easily into the endometrial cavity and several passes with suction revealed a small amount of blood only. Due to the amount of bleeding, the patient was given TXA a 1000 mg, methargen 0.2 mg, and Hemabate 150 mcg. Her bleeding significantly slowed. A transabdominal ultrasound was but done by diagnostic imaging and there was a small amount of tissue at the anterior fundus. Using the # 9 curette and direct visualization with the ultrasound this tissue was removed. Several passes with a sharp curette revealed no tissue. The instruments were removed from the uterus. The single- tooth tenaculum was removed from the anterior lip of the cervix. The bivalve speculum was removed from the vagina. Sponge, lap, and instrument counts were correct x2. The patient tolerated the procedure well, and was taken to PACU in stable condition. A second IV was placed when brisk bleeding was encountered. An H and H were sent intraoperatively. Complications: none Post-operative Condition: stable Disposition: PACU Plan for aftercare: Home after recovery
--- NOTE | 2023-10-16 13:37 | PM.PREOP ---
Pre-operative Note Interval Note History & Physical reviewed/Exam performed by Physician: Yes Changes to H&P: No H&P completed within 30 days and has changed as indicated here:: 10/16/23
[2023-10-16] MEDS: CEFAZOLIN 2 GM/100 ML PREMIX 100 ML IV ×2 (13:57)
[2023-10-16] MEDS: miSOPROStoL 200 MCG TABLET 800 MCG PR (14:06)
[2023-10-16] MEDS: TRANEXAMIC ACID 1,000 MG in SODIUM CHLORIDE 0.9% 100 ML 200 MG IV (14:20)
[2023-10-16] MEDS: METHYLERGONOVINE 0.2 MG/ML VIAL IM (14:32)
[2023-10-16] MEDS: [UNRECOGNIZED DRUG - MIXTURE] IRR (14:39)
[2023-10-16 15:05] LABS: Hemoglobin 9.9 g/dL (12.0-16.0)
[2023-10-16 16:23] LABS: Hematocrit 32.6 % (36-46); Hemoglobin 10.9 g/dL (12.0-16.0)
[2023-10-16 17:05] LABS: Hematocrit 33.6 % (36-46); Hemoglobin 11.4 g/dL (12.0-16.0)
== END 2023-10-16 17:23 | disposition home or self-care (01) ==
PROVIDERS: Referring Provider Obstetrics & Gynecology; Visit Provider Obstetrics & Gynecology
PROC: (CPT 58120; principal; 2023-10-16 14:00)
DX: O02.1 Missed abortion (principal); Z3A.14 14 weeks gestation of pregnancy
CPT/HCPCS: 59820; 76857; 85014; 85018; 86850; 86900; 86901; J0136; J0690; J1100; J2210; J2250; J2405; J2704; J3010; S0191

== ENCOUNTER → 2023-11-13 15:59 | Outpatient (CLI) | payer OTHER, SELFPAY ==
[2023-11-13 17:15] LABS: Appearance Urine UA CLEAR; Bilirubin Urine UA NEGATIVE (NEGATIVE); Color Urine UA YELLOW; Glucose Urine UA NEGATIVE (Negative); Ketones Urine UA NEGATIVE (NEGATIVE); Leukocyte Esterase Urine UA TRACE (NEGATIVE); Nitrite Urine UA NEGATIVE (Negative); Occult Blood Urine UA NEGATIVE (Negative); Protein Urine UA NEGATIVE (Negative); Urobilinogen Urine UA 0.2 E.U./dL (0.2)
[2023-11-13 18:39] LABS: Bacteria Urine None Seen; Culture Indicated Urine Cult Not Indicated; RBC Urine None Seen (0-5/HPF); Squamous Epithelial Cell Urine None Seen (0-5/HPF); Urine Volume 10mL (spun); WBC Urine None Seen (0-5/HPF)
== END ==
PROVIDERS: Referring Provider Specialist; Visit Provider Specialist
DX: R30.0 Dysuria (principal)
CPT/HCPCS: 81001

== ENCOUNTER → 2024-06-16 16:00 | Outpatient (CLI) | payer OTHER, SELFPAY ==
--- NOTE | 2024-06-16 16:01 | DI.MG.S_ITS ---
MM screening mammo BI: 06/16/2024. BI-RADS: 1 CLINICAL: 39-year old female for bilateral screening mammogram. Tyrer-Cuzick lifetime risk of 7.5%. No personal or first-degree family history of breast cancer. PRIOR EXAMS 05/30/2023, 10/26/2020. MAMMOGRAPHY TECHNIQUE: 2D and 3D (tomosynthesis) digital mammographic views obtained, with additional images as needed for full coverage. Current study was also evaluated with a Computer Aided Detection (CAD) system. DENSITY C. The breasts are heterogeneously dense, which may obscure small masses. MAMMOGRAPHY FINDINGS Bilateral: No suspicious mass, asymmetry, microcalcification, or other abnormality seen. IMPRESSION: * No evidence of malignancy. RECOMMENDATIONS Bilateral * Annual screening mammography. OVERALL ASSESSMENT CATEGORY BI-RADS-1: Negative. The [employer] recommends annual screening mammography beginning at age 40 for women with average risk of breast cancer. ELECTRONICALLY SIGNED: Trent Farah M.D. on 06/17/2024 at 11:51:48 AM PT Interpreting Station ID: [id number]
== END ==
PROVIDERS: Referring Provider Obstetrics & Gynecology; Visit Provider Obstetrics & Gynecology
DX: Z12.31 Encounter for screening mammogram for malignant neoplasm of breast (principal); R92.333 Mammographic heterogeneous density, bilateral breasts
CPT/HCPCS: 77063; 77067